=== PATIENT | male | born 2000 | race Caucasian/White ===

== ENCOUNTER 2021-02-08 20:04 | Emergency (ER) | payer OTHER, SELFPAY ==
--- NOTE | 2021-02-08 20:12 | XRR_ITS ---
PROCEDURE INFORMATION: Exam: XR Chest Exam date and time: 02/08/2021 8:12 PM Age: 20 years old Clinical indication: Shortness of breath; Additional info: SOB TECHNIQUE: Imaging protocol: XR of the chest. Views: 2 views. COMPARISON: No relevant prior studies available. FINDINGS: Lungs: Unremarkable. No consolidation. Pleural spaces: Unremarkable. No pleural effusion. No pneumothorax. Heart/Mediastinum: Unremarkable. No cardiomegaly. Bones/joints: Unremarkable. XR/XR chest 2V* [id number] IMPRESSION: No acute findings.
[2021-02-08 20:49] VITALS: BP 154/75; PULSE 83; RESP 16; TEMP 37.6; O2SAT 98
[2021-02-08] MEDS: predniSONE 20 mg Tablet PO (22:30)
--- NOTE | 2021-02-08 22:46 | ED_ITS ---
HPI - SOB/Dyspnea General: Chief Complaint: Shortness of Breath/Dyspnea Stated Complaint: sob Time Seen by Provider: 02/08/21 22:13 History of Present Illness: HPI Narrative: Patient states been exposed to more bleach here working out in felt like he possibly had an asthma attack tonight. Patient denies any fever any significant cough no loss of taste smell body aches or headache. MD elicited complaint: shortness of breath Pertinent past history: asthma Severity: mild Exacerbating factors: strong odors Relieving factors: nothing Associated symptoms: Reports no associated symptoms; Deny abdominal pain, chest pain, extremity pain, fever(s), nausea or vomiting Treatment prior to arrival: none Review of Systems Const: Denies: fever(s), chills or body aches Eyes: Denies: change in vision or blurry vision ENMT: Denies: throat pain or nasal congestion Card: Denies: chest pain or dyspnea on exertion Resp: Reports: dyspnea (Has improved over the last hour); Denies: productive cough or non-productive cough GI: Denies: abdominal pain, nausea or vomiting : Denies: difficulty urinating Musc: Denies: extremity pain Skin/Breast: Denies: rash Neuro: Denies: headache(s) Psych: Denies: anxiety or depression Bandar/Lymph: Denies: easy bruising PFSH ED PFSH: Medical History Psychiatric care Social History Smoking and tobacco status: current every day smoker (vape) Physical Exam Const: COMMON NORMALS: no acute distress, average body habitus and patient oriented x3 HENMT: COMMON NORMALS: normocephalic HEAD & SCALP: normal to inspection and normocephalic FACE & SINUS: normal facial exam Eye: COMMON NORMALS: conjunctivae normal GENERAL EYE: appearance normal, both eyes and all related structures CONJUNCTIVA: Yes conjunctivae normal Neck/C-Spine: COMMON NORMALS: no JVD Chest: COMMONS NORMALS: normal inspection of the chest Resp: COMMON NORMALS: normal respiratory effort and clear to auscultation b ilaterally AUSCULTATION: clear to auscultation bilaterally and wheezes (Very mild expiratory base) Cardio: COMMON NORMALS: no JVD, regular rate and regular rhythm RATE: regular rate RHYTHM: regular rhythm GI: COMMON NORMALS: Normal to inspection, nondistended, normoactive bowel sounds present Extremity: COMMON NORMALS: normal to inspection and full ROM Neuro: COMMON NORMALS: patient oriented x3 Course Vital Signs: Vital signs: Vital Signs Temperature 99.6 F 02/08/21 20:49 Pulse Rate 98 02/08/21 23:06 Respiratory Rate 17 02/08/21 23:06 Blood Pressure 154/75 02/08/21 20:49 Pulse Oximetry 99 02/08/21 23:06 MDM - SOB/Dyspnea MDM Narrative: Medical decision making narrative: 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 Patient has no fever headache sore throat loss of taste or smell. Has minimal shortness of breath and he can relates this to being exposed to a lot more bleachers at work. Patient has an inhaler but it appears to be out of date. Patient no acute distress not short of breath presently chest x-ray is negative. Discharge Plan Discharge Patient Disposition: Home Clinical Impression: Asthma with exacerbation Qualifiers: Asthma severity: mild Asthma persistence: intermittent Qualified Code(s): J45.21 - Mild intermittent asthma with (acute) exacerbation Condition: Stable Prescriptions: New prednisone 20 mg tablet 20 mg PO DAILY Qty: 7 RF: 0 ProAir HFA 90 mcg/actuation HFA aerosol inhaler 3 inh inhalation Q6H PRN (Reason: shortness of breath or wheezing) Qty: 8.5 RF: 0 No Action albuterol sulfate 90 mcg/actuation HFA aerosol inhaler 1 inh inhalation QID RF: 0 divalproex 500 mg tablet,delayed release (DR/EC) 500 mg PO BID RF: 0 buspirone 30 mg tablet 30 mg PO BID RF: 0 triamcinolone acetonide 0.1 % cream 1 applic topical BID 7 Days Qty: 30 RF: 0 Discharge Orders: Discharge ED (Routine); Ordered 02/08/21 Ordered By: Rosendo Lin Discharge Diet: Usual diet Discharge Activity: Resume usual activity Patient Instructions: Asthma (ED) Activity Restrictions/Additional Instructions: Follow-up with medical provider as directed. Take medications as prescribed. Return to the ER or your medical provider if condition worsens. Please read and understand discharge instructions. If any questions ask please. Discussed with your body shop supervisor if exposure to lots of bleach is causing her problems. Coding Level of Care Code ED Marine Structural Designer for Jennifer Fwd Exam Comprehensive
[2021-02-08] MEDS: albuterol 8 gm MDI 2 PUFF INHALATION (23:01)
[2021-02-08 23:06] VITALS: PULSE 98; RESP 17; O2SAT 99
== END 2021-02-08 23:07 | disposition home or self-care (01) ==
PROVIDERS: Emergency Provider Nurse Practitioner Family
DX: J45.21 Mild intermittent asthma with (acute) exacerbation (principal); F17.290 Nicotine dependence, other tobacco product, uncomplicated
CPT/HCPCS: 71046; 94640; 99283; J3535; J7512

== ENCOUNTER 2021-08-21 14:59 | Emergency (ER) | payer OTHER, SELFPAY ==
[2021-08-21 15:32] VITALS: BP 124/66; PULSE 63; RESP 15; TEMP 36.5; O2SAT 95; BMI 18.6
[2021-08-21 15:50] VITALS: BP 115/72; PULSE 81; RESP 14; TEMP 37.1; O2SAT 98; BMI 30.1
--- NOTE | 2021-08-21 16:03 | XR_ITS ---
WS: [id number] PORTABLE CHEST HISTORY: cough, congestion COMPARISON: 02/08/2021 Lungs are clear and well expanded. No pleural effusion or pneumothorax. Cardiac size: Normal. Mediastinum/Aorta: Normal mediastinum. No osseous abnormality seen. XR/XR chest 1V portable [id number] IMPRESSION: Unremarkable portable chest.
--- NOTE | 2021-08-21 16:16 | ED_ITS ---
HPI - URI/Sore Throat General: Chief Complaint: General Medical Stated Complaint: Coughing, head congestion, chest feels tight Time Seen by Provider: 08/21/21 15:40 Source: patient Mode of arrival: ambulatory Limitations: no limitations History of Present Illness: Patient is a 21-year-old male with a history of asthma here for complaints of nasal congestion, headache, body aches, cough, and sore throat over the past 3 to 4 days. Patient has not been running fevers. He has not had to use his albuterol inhaler more than normal. He states he works for the [employer] and was told to come to the ED to rule out COVID. Patient reports 2 previous COVID infections. MD elicited complaint: cough, sore throat, nasal congestion and other (headache, body aches) Onset (ago): day(s) Severity: mild Description of mucous: clear Able to tolerate fluids by mouth: Yes Associated symptoms: Reports headache(s), nasal congestion and sinus pain; Deny abdominal pain, chest pain, diarrhea, ear or mastoid pain, fever(s), nausea or vomiting Treatments prior to arrival: none Review of Systems Const: Reports: body aches; Denies: fever(s) Eyes: Denies: change in vision or blurry vision ENMT: Reports: throat pain, odynophagia, nasal congestion and sinus pain; Denies: ear or mastoid pain Card: Denies: chest pain, palpitations, edema, swelling of feet/ankles, lightheadedness, syncope or pre-syncope Resp: Reports: productive cough and chest congestion; Denies: dyspnea, wheezing or hemoptysis GI: Denies: abdominal pain, nausea, vomiting or diarrhea Musc: Denies: neck pain, back pain, extremity pain or joint pain Skin/Breast: Denies: rash Neuro: Reports: headache(s); Denies: numbness in extremities, weakness in extremities, sensory changes or dizziness [facility] ED PFSH: Medical History Psychiatric care Social History Smoking and tobacco status: current every day smoker (vape) e-cigarettes E- Cigarette Details: vaporizer device and with nicotine E-cig/vape details: Uses a stick in about 1.5 weeks. Quit status (tobacco): considering quitting Second hand smoke exposure: No Physical Exam Const: COMMON NORMALS: no acute distress, patient oriented x3, no limitations and alert GENERAL APPEARANCE: cooperative HENMT: FACE & SINUS: normal facial exam NOSE: Nasal discharge present THROAT: posterior oropharynx normal Eye: GENERAL EYE: appearance normal, both eyes and all related structures Neck/C-Spine: COMMON NORMALS: no lymphadenopathy Resp: COMMON NORMALS: normal respiratory effort and clear to auscultation bilaterally AUSCULTATION: clear to auscultation bilaterally Cardio: COMMON NORMALS: regular rate and regular rhythm RATE: regular rate RHYTHM: regular rhythm Extremity: GENERAL: Yes normal exam except as noted Neuro: ARETHA COMA SCALE: document [facility] findings [place] coma scale eye opening: Spontaneous Aretha coma scale verbal response: Orientated [place] coma scale motor response: Obey commands [place] coma scale total score: 15 COMMON NORMALS: patient oriented x3, moves all extremities, no focal motor deficits and no sensory deficits noted SENSORIUM/ORIENTATION: Yes alert Skin: COMMON NORMALS: no rashes or lesions noted GENERAL SKIN EXAM: no rashes or lesions noted Course Vital Signs: Vital signs: Vital Signs Temperature 98.8 F 08/21/21 15:50 Pulse Rate 81 08/21/21 15:50 Respiratory Rate 14 08/21/21 15:50 Blood Pressure 115/72 08/21/21 15:50 Pulse Oximetry 98 08/21/21 15:50 MDM - URI/Sore Throat Medical Decision Making Patient appears in no acute distress. His vital signs are normal. CXR is no rmal. PCR COVID obtained. Recommend quarantining until results return. Lab Data Radiology Impressions Chest X-Ray 08/21/21 16:03 IMPRESSION: Unremarkable portable chest. Laboratory Results Coronavirus 229E (PCR) Not detected (NOT DETECT) 08/21/21 16:23 Human Metapneumovir PCR Not detected (NOT DETECT) 08/21/21 18:39 Entero/Rhino (PCR) Detected (NOT DETECT) A 08/21/21 18:39 SARS-CoV-2 (PCR) Not detected (NOT DETECT) 08/21/21 16:23 Discharge Plan Discharge Patient Disposition: Home Clinical Impression: Viral upper respiratory infection Condition: Stable Prescriptions: No Action albuterol sulfate 90 mcg/actuation HFA aerosol inhaler 1 inh inhalation QID 0RF duloxetine [Cymbalta] 60 mg capsule,delayed release(DR/EC) 60 mg PO DAILY Qty: 30 2RF ProAir HFA 90 mcg/actuation HFA aerosol inhaler 3 inh inhalation Q6H PRN (Reason: shortness of breath or wheezing) Qty: 8.5 0RF Discharge Orders: Discharge ED (Routine); Ordered 08/21/21 Ordered By: Mavis Cho Activity Restrictions/Additional Instructions: Your chest x-ray was normal. As we discussed I would recommend quarantining until your COVID results return. Coding Level of Care Code ED Biological Aide for Chg Fwd Exam Comprehensive
[2021-08-21 18:39] LABS: Adenovirus Not Detected (NOT DETECT); Chlamydia Pneumoniae Not Detected (NOT DETECT); Human Metapneumovirus Not Detected (NOT DETECT); Human Rhinovirus/Enterovirus Detected (NOT DETECT); Influenza A Not Detected (NOT DETECT); Influenza A H1 Not Detected (NOT DETECT); Influenza A H1-2009 Not Detected (NOT DETECT); Influenza A H3 Not Detected (NOT DETECT); Influenza B Not Detected (NOT DETECT); Mycoplasma Pneumoniae Not Detected (NOT DETECT); Parainfluenza Virus Type 1 Not Detected (NOT DETECT); Parainfluenza Virus Type 2 Not Detected (NOT DETECT); Parainfluenza Virus Type 3 Not Detected (NOT DETECT); Parainfluenza Virus Type 4 Not Detected (NOT DETECT); Respiratory Syncytial Virus A Not Detected (NOT DETECT); Respiratory Syncytial Virus B Not Detected (NOT DETECT)
[2021-08-21 18:42] LABS: Coronavirus 229E,HKU1,NL63,OC4 Not Detected (NOT DETECT); SARS-COV-2 Not Detected (NOT DETECT)
[2021-08-21 18:47] LABS: Human Metapneumovirus Not Detected (NOT DETECT); Human Rhinovirus/Enterovirus Detected (NOT DETECT); Results from GENMARK
== END 2021-08-21 16:47 | disposition home or self-care (01) ==
PROVIDERS: Emergency Provider Physician Assistant
DX: J06.9 Acute upper respiratory infection, unspecified (principal); F17.290 Nicotine dependence, other tobacco product, uncomplicated; Z20.822 Contact with and (suspected) exposure to COVID-19
CPT/HCPCS: 71045; 87635; 87801; 99283

== ENCOUNTER 2021-09-22 21:33 | Outpatient (CLI) | payer OTHER, SELFPAY | END 2021-09-22 21:34 | disposition home or self-care (01) | LOC: LAB 21:36 | PROVIDERS: Visit Provider Nurse Practitioner Family | DX: R30.0 Dysuria (principal) | CPT/HCPCS: 87491; 87591 ==

== ENCOUNTER 2022-01-14 15:09 | Emergency (ER) | payer OTHER, SELFPAY ==
[2022-01-14 15:40] VITALS: BP 138/84; PULSE 85; RESP 16; TEMP 36.5; O2SAT 97
--- NOTE | 2022-01-14 15:53 | W.ED.GENADLT ---
HPI - General Adult General: Chief complaint: General Medical Stated complaint: rib pain Time Seen by Provider: 01/14/22 15:49 History of Present Illness: 21-year-old male comes in today with complaints of rib pain with cough and congestion for about 1 week. Patient is reported worsening symptoms over the last 2 to 3 days. 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 Patient has a history of asthma and cigarette smoking. Associated symptoms: Reports chest pain (Rib pain) Review of Systems Const: Denies: fever(s) Card: Reports: chest pain (Rib pain) Resp: Reports: non-productive cough PFSH ED PFSH: Medical History Psychiatric care Social History Smoking and tobacco status: current every day smoker (vape) e-cigarettes E-Cigarette Details: vaporizer device and with nicotine E-cig/vape details: Uses a stick in about 1.5 weeks. Quit status (tobacco): considering quitting Second hand smoke exposure: No Physical Exam Const: COMMON NORMALS: alert HENMT: COMMON NORMALS: normocephalic HEAD & SCALP: normocephalic Neck/C-Spine: COMMON NORMALS: no meningeal signs Resp: COMMON NORMALS: normal respiratory effort AUSCULTATION: diminished lung sounds Cardio: COMMON NORMALS: regular rate and regular rhythm RATE: regular rate RHYTHM: regular rhythm GI: COMMON NORMALS: Soft to palpation and non-tender PALPATION: Yes Soft to palpation Extremity: COMMON NORMALS: full ROM Neuro: SENSORIUM/ORIENTATION: Yes alert MENINGEAL SIGNS: Yes no meningeal signs Skin: COMMON NORMALS: turgor normal GENERAL SKIN EXAM: turgor normal Course Vital Signs: Vital signs: Vital Signs Temperature 97.7 F 01/14/22 15:40 Pulse Rate 76 01/14/22 16:28 Respiratory Rate 16 01/14/22 16:28 Blood Pressure 138/84 01/14/22 15:40 Pulse Oximetry 96 01/14/22 16:28 Oxygen Delivery Me thod 01/14/22 16:28 MDM - General Adult Medical Decision Making 21-year-old male comes in today for complaints of cough and rib pain for about 1 week. Patient does have a history of asthma. On exam patient has decreased breath sounds with occasional wheeze. Differential diagnosis includes pneumonia, exacerbation of asthma, upper respiratory infection. Chest x-ray was unremarkable. COVID and influenza test were negative. Believe the patient probably has had an upper respiratory infection that has aggravated patient's asthma. Patient will be treated with steroid and albuterol inhaler. Patient was recommended to use some doxycycline for the next 5 days for further treatment of bronchitis. Patient reported understanding of care plan and need for follow-up or return to the ER for worsening symptoms. Lab Data Radiology Impressions Chest X-Ray 01/14/22 15:56 IMPRESSION: No acute findings. Laboratory Results Influenza Type A Ag negative (Negative) 01/14/22 16:35 Influenza Type B Ag negative (Negative) 01/14/22 16:35 SARS-CoV-2 Ag (Rapid) negative (Negative) 01/14/22 16:18 Discharge Plan Discharge Patient Disposition: Home Clinical Impression: Asthma Qualifiers: Asthma severity: moderate Asthma persistence: persistent Asthma complication type: with acute exacerbation Qualified Code(s): J45.41 - Moderate persistent asthma with (acute) exacerbation Condition: Stable Prescriptions: New prednisone 20 mg tablet 20 mg PO DAILY 5 Days Qty: 5 0RF doxycycline monohydrate 100 mg capsule 100 mg PO BID 5 Days Qty: 10 0RF albuterol sulfate 90 mcg/actuation HFA aerosol inhaler 2 inh inhalation Q4H PRN (Reason: shortness of breath or wheezing) Qty: 8.5 0RF Rx Instructions: until breathing returns to target peak flow/parameters Discontinued albuterol sulfate 90 mcg/actuation HFA aerosol inhaler 1 inh inhalation QID albuterol sulfate [ProAir HFA] 90 mcg/actuation HFA aerosol inhaler 3 inh inhalation Q6H PRN (Reason: shortness of breath or wheezing) Qty: 8.5 0RF No Action duloxetine [Cymbalta] 60 mg capsule,delayed release(DR/EC) 60 mg PO DAILY Qty: 30 2RF Discharge Orders: Discharge ED (Routine); Ordered 01/14/22 Ordered By: Jose Younger Discharge Diet: Usual diet Discharge Activity: Increase activity as tolerated Patient Instructions: Wheezing (ED) Activity Restrictions/Additional Instructions: Take medications as directed. Drink plenty of water and fluids. Follow-up with primary care for further instruction. Return to ER for worsening symptoms such as increased shortness of breath, chest pain, inability to hold fluids down. Coding Level of Care Code ED Optometrist Assistant for Chg Fwd Exam Comprehensive
--- NOTE | 2022-01-14 15:56 | XRR_ITS ---
PROCEDURE INFORMATION: Exam: XR Chest Exam date and time: 01/14/2022 4:38 PM Age: 21 years old Clinical indication: Cough and other: Congestion; Additional info: Cough, congestion, rib pain TECHNIQUE: Imaging protocol: Radiologic exam of the chest. Views: 2 views. COMPARISON: CR XR chest 1V portable [id number] 08/21/2021 4:26 PM FINDINGS: Lungs: Unremarkable. No consolidation. Pleural spaces: Unremarkable. No pleural effusion. No pneumothorax. Heart/Mediastinum: Unremarkable. No cardiomegaly. Bones/joints: Unremarkable. XR/XR chest 2V* [id number] IMPRESSION: No acute findings.
[2022-01-14] MEDS: albuterol 8 gm MDI 2 PUFF INHALATION (16:25)
[2022-01-14 16:28] VITALS: PULSE 76; RESP 16; O2SAT 96
[2022-01-14 16:51] LABS: Influenza A by IFA negative (Negative); Influenza B by IFA negative (Negative)
[2022-01-14 16:54] LABS: SARS Covid-2 Antigen negative (Negative)
[2022-01-14] MEDS: dexamethasone 10 mg/mL INJ IM (17:11)
[2022-01-14] MEDS: doxycycline 100 mg Tablet PO (17:32)
== END 2022-01-14 17:36 | disposition home or self-care (01) ==
PROVIDERS: Emergency Provider Nurse Practitioner Family
DX: J45.41 Moderate persistent asthma with (acute) exacerbation (principal); Z20.822 Contact with and (suspected) exposure to COVID-19; F17.290 Nicotine dependence, other tobacco product, uncomplicated
CPT/HCPCS: 71046; 87426; 87804; 94640; 96372; 99284; J1100; J3535

== ENCOUNTER 2022-08-29 16:24 | Emergency (ER) | payer SELFPAY ==
[2022-08-29 16:29] VITALS: BP 119/80; PULSE 75; RESP 16; TEMP 36.9; O2SAT 98; BMI 25.1
[2022-08-29 16:47] LABS: Basophils # 0.1 10^3/uL (0.0-0.1); Basophils % 0.7 %; Eosinophils % 11.6 %; Hematocrit 45.4 % (42.0-52.0); Hemoglobin 14.9 g/dL (11.7-16.6); Lymphocytes # 2.6 10^3/uL (0.8-4.8); Mean Corpuscular HGB Conc 32.8 g/dL (30.0-36.0); Mean Corpuscular Hemoglobin 28.3 pg (28.0-34.0); Mean Corpuscular Volume 86.1 fl (80-94); Monocytes # 0.7 10^3/uL (0.2-0.9); Monocytes % 8.6 %; Neutrophils # 3.88 10^3/uL (1.8-7.7); Nucleated Red Blood Cells % 0 %; Platelet Count 288 10^3/cmm (130-400); Red Blood Count 5.27 10^6/uL (4.1-5.3); Red Cell Distribution Width 12.6 % (12.1-15.1); White Blood Count 8.3 10^3/uL (4.0-10.0)
[2022-08-29 16:58] LABS: Alanine Aminotransferase 9 U/L (0-41); Albumin Level 4.7 g/dL (3.5-5.2); Alkaline Phosphatase 38 U/L (40-130); Anion Gap 17.4 (5-19); Aspartate Amino Transferase 14 U/L (0-40); Blood Urea Nitrogen 13 mg/dL (6-20); Calcium 9.6 mg/dL (8.5-10.5); Carbon Dioxide 24 mmol/L (22-29); Chloride 103 mmol/L (98-107); Globulin 2.7 g/dL (1.3-4.6); Glomerular Filtration Rate 92.6 mL/min (90-130); Glucose 105 mg/dL (65-115); Lipase 18 U/L (13-60); Osmolality Calculated 290 mOsm/kg (285-295); Potassium 4.4 mmol/L (3.5-5.1); Sodium 140 mmol/L (136-145); Total Bilirubin 0.8 mg/dL (0.15-1.2); Total Protein 7.4 g/dL (6.6-8.7)
[2022-08-29 20:55] VITALS: BP 130/81; PULSE 70; RESP 16; TEMP 37.1; O2SAT 98
--- NOTE | 2022-08-29 20:55 | CTR_ITS ---
PROCEDURE INFORMATION: Exam: CT Abdomen And Pelvis Without Contrast Exam date and time: 08/29/2022 9:22 PM Age: 22 years old Clinical indication: Abdominal pain; Flank; Right; Additional info: Right flank pain TECHNIQUE: Imaging protocol: Computed tomography of the abdomen and pelvis without contrast. Radiation optimization: All CT scans at this facility use at least one of these dose optimization techniques: automated exposure control; mA and/or kV adjustment per patient size (includes targeted exams where dose is matched to clinical indication); or iterative reconstruction. REPORTING DATA: Count of CT and Cardiac NM exams in prior 12 months: This patient has received 0 known CTs and 0 known cardiac nuclear medicine studies in the 12 months prior to the current study. COMPARISON: CR XR chest 2V* [id number] 01/14/2022 4:38 PM RADIATION DOSE METRICS: Total DLP (mGy-cm): 389.14 FINDINGS: Lungs: The visualized lung bases are clear. Liver: Unremarkable. No discrete mass. Gallbladder and bile ducts: No calcified gallstones or biliary dilation identified. Pancreas: Unremarkable with no suspicious mass. No ductal dilation. Spleen: The spleen is not enlarged. No suspicious mass is noted. Adrenal glands: Normal. No mass. Kidneys and ureters: No solid renal mass or hydronephrosis. Stomach and bowel: No small bowel obstruction or free air. No overt mucosal thickening. Appendix: No evidence of appendicitis. Intraperitoneal space: Unremarkable. No free air. No suspicious fluid collection. Vasculature: No AAA or acute vascular lesion identified. Lymph nodes: No enlarged lymph nodes. Urinary bladder: Unremarkable as visualized. Reproductive: Unremarkable as visualized. Bones/joints: No acute fracture. Soft tissues: No acute or suspicious finding noted. Tiny fat umbilical hernia. CT/CT kidney stone [id number] IMPRESSION: No acute findings.
--- NOTE | 2022-08-29 20:55 | W.ED.ABDPA2 ---
HPI - Abdominal Pain General: Chief Complaint: Abdominal Pain Stated Complaint: right side and back pain, dizzy, n/v Time Seen by Provider: 08/29/22 20:55 History of Present Illness: 22-year-old male patient comes in today with complaints of right lower abdominal pain radiating to the back starting 2 days ago. Patient appears nontoxic. Patient reports some nausea with vomiting. Patient has very poor teeth. Patient denies any history of abdominal surgeries. Patient denies any history of renal stones. Associated Symptoms: Reports nausea and vomiting; Denies constipation, diarrhea and fever(s) Review of Systems General: Reports: 10 or more systems reviewed and unremarkable except in HPI and below Const: Denies: fever(s) Eyes: Denies: change in vision Card: Denies: chest pain Resp: Denies: dyspnea GI: Reports: abdominal pain, nausea and vomiting; Denies: diarrhea or constipation : Denies: difficulty urinating Musc: Reports: back pain Skin/Breast: Denies: rash PFSH ED PFSH: Social History Smoking and tobacco status: current every day smoker (vape) e-cigarettes E-Cigarette Details: vaporizer device and with nicotine E-cig/vape details: Uses a stick in about 1.5 weeks. Quit status (tobacco): considering quitting Second hand smoke exposure: No Physical Exam Const: COMMON NORMALS: alert HENMT: COMMON NORMALS: normocephalic HEAD & SCALP: normocephalic MOUTH: Normal oral and palatal mucosa present Neck/C-Spine: COMMON NORMALS: full ROM Resp: COMMON NORMALS: normal respiratory effort and clear to auscultation bilaterally AUSCULTATION: clear to auscultation bilaterally Cardio: COMMON NORMALS: regular rate and regular rhythm RATE: regular rate RHYTHM: regular rhythm GI: AUSCULTATION: Yes normoactive bowel sounds PALPATION: Yes Tenderness to palpation present (GI) and Yes Guarding due to palpation present (GI) : BLADDER/KIDNEY EXAM: Yes CVA tenderness on the right Back/Pelvis: GENERAL BACK: Yes CVA tenderness Extremity: COMMON NORMALS: full ROM Neuro: SENSORIUM/ORIENTATION: Yes alert Skin: COMMON NORMALS: turgor normal GENERAL SKIN EXAM: turgor normal Course Vital Signs: Vital signs: Vital Signs Temperature 98.7 F 08/29/22 20:55 Pulse Rate 70 08/29/22 20:55 Respiratory Rate 16 08/29/22 20:55 Blood Pressure 130/81 08/29/22 20:55 Pulse Oximetry 98 08/29/22 20:55 Oxygen Delivery Me thod Room Air 08/29/22 16:29 MDM - Abdominal Pain Medical Decision Making 22-year-old male patient comes in today for complaints of right side abdominal pain rating to the flank. On exam respirations are even lungs were clear to auscultation. Skin was warm and dry. Vital signs were normal. Abdomen was tender in the right lower quadrant. CVA tenderness was also noted on percussion on the right side. Differential diagnosis includes but not limited to appendicitis, gallbladder disease, renal calculi, constipation, gastroenteritis. Laboratory values were unremarkable. Urinalysis was clean. CT of the abdomen and pelvis noted no hydronephrosis or signs of renal or ureteral stone, gallbladder was unremarkable, appendix was unremarkable. Patient was treated for his pain and encouraged to eat a healthy diet with lots of fluids. Patient was recommended to follow-up with primary care for further instruction or return to ER for worsening symptoms. Patient reported understanding and agreed to plan. No sign of illness was noted at this time and patient was stable and released to home. Lab Data 08/29/22 16:33 08/29/22 16:33 Labs/Radiology: Radiology Impressions Abdomen/Pelvis CT 08/29/22 20:55 IMPRESSION: No acute findings. Laboratory Results WBC 8.3 10^3/uL (4.0-10.0) 08/29/22 16:33 RBC 5.27 10^6/uL (4.1-5.3) 08/29/22 16:33 Hgb 14.9 g/dL (11.7-16.6) 08/29/22 16:33 Hct 45.4 % (42.0-52.0) 08/29/22 16:33 MCV 86.1 fl (80-94) 08/29/22 16:33 MCH 28.3 pg (28.0-34.0) 08/29/22 16: MCHC 32.8 g/dL (30.0-36.0) 08/29/22 16:33 RDW 12.6 % (12.1-15.1) 08/29/22 16:33 Plt Count 288 10^3/cmm (130-400) 08/29/22 16:33 MPV 9.0 fL (7.4-10.4) 08/29/22 16:33 Neut % (Auto) 47.0 % 08/29/22 16:33 Lymph % (Auto) 32.0 % 08/29/22 16:33 Delta % (Auto) 8.6 % 08/29/22 16:33 Eos % (Auto) 11.6 % 08/29/22 16:33 Baso % (Auto) 0.7 % 08/29/22 16:33 Neut # (Auto) 3.88 10^3/uL (1.8-7.7) 08/29/22 16:33 Lymph # (Auto) 2.6 10^3/uL (0.8-4.8) 08/29/22 16:33 [place] # (Auto) 0.7 10^3/uL (0.2-0.9) 08/29/22 16:33 Eos # (Auto) 1.0 10^3/uL (0.0-0.8) H 08/29/22 16:33 Baso # (Auto) 0.1 10^3/uL (0.0-0.1) 08/29/22 16:33 Nucleated RBC % (auto) 0 % 08/29/22 16:33 Nucleated RBCs # 0.0 /100WBC 08/29/22 16:33 Sodium 140 mmol/L (136-145) 08/29/22 16:33 Potassium 4.4 mmol/L (3.5-5.1) 08/29/22 16:33 Chloride 103 mmol/L (98-107) 08/29/22 16:33 Carbon Dioxide 24 mmol/L (22-29) 08/29/22 16:33 Anion Gap 17.4 (5-19) 08/29/22 16:33 BUN 13 mg/dL (6-20) 08/29/22 16:33 Creatinine 1.0 mg/dL (0.7-1.2) 08/29/22 16:33 GFR Calculation 92.6 mL/min (90-130) 08/29/22 16:33 Glucose 105 mg/dL (65-115) 08/29/22 16:33 Calculated Osmolality 290 mOsm/kg (285-295) 08/29/22 16:33 Calcium 9.6 mg/dL (8.5-10.5) 08/29/22 16:33 Total Bilirubin 0.8 mg/dL (0.15-1.2) 08/29/22 16:33 AST 14 U/L (0-40) 08/29/22 16:33 ALT 9 U/L (0-41) 08/29/22 16:33 Alkaline Phosphatase 38 U/L (40-130) L 08/29/22 16:33 Total Protein 7.4 g/dL (6.6-8.7) 08/29/22 16:33 Albumin 4.7 g/dL (3.5-5.2) 08/29/22 16:33 Globulin 2.7 g/dL (1.3-4.6) 08/29/22 16:33 Lipase 18 U/L (13-60) 08/29/22 16:33 Urine Color Yellow (Yellow) 08/29/22 20:58 Urine Appearance Clear (CLEAR) 08/29/22 20:58 Urine pH 6 (5-7) 08/29/22 20:58 Ur Specific [place] 1.020 (1.005-1.030) 08/29/22 20:58 Urine Protein Neg (Negative) 08/29/22 20:58 Urine Glucose (UA) Norm (Normal) 08/29/22 20:58 Urine Ketones 1+ (Negative) H 08/29/22 20:58 Urine Blood Neg (Negative) 08/29/22 20:58 Urine Nitrate Negative (Negative) 08/29/22 20:58 Urine Bilirubin Neg (Negative) 08/29/22 20:58 Urine Urobilinogen Norm mg/dL (Negative) 08/29/22 20:58 Ur Leukocyte Esterase Negative (Negative) 08/29/22 20:58 Discharge Plan Discharge Patient Disposition: Home Clinical Impression: Abdominal pain Qualifiers: Abdominal location: right lower quadrant Qualified Code(s): R10.31 - Right lower quadrant pain Condition: Stable Prescriptions: New ondansetron 4 mg tablet,disintegrating 4 mg PO Q8H PRN (Reason: nausea and vomiting) Qty: 7 0RF hydrocodone-acetaminophen 5-325 mg tablet 1 tab PO Q8H PRN (Reason: pain (scale score 7-10)) Qty: 7 0RF No Action duloxetine [Cymbalta] 60 mg capsule,delayed release(DR/EC) 60 mg PO DAILY Qty: 30 2RF albuterol sulfate 90 mcg/actuation HFA aerosol inhaler 2 inh inhalation Q4H PRN (Reason: shortness of breath or wheezing) Qty: 8.5 0RF Rx Instructions: until breathing returns to target peak flow/parameters Discharge Orders: Discharge ED (Routine); Ordered 08/29/22 Ordered By: Jose Younger Discharge Diet: Usual diet Discharge Activity: Increase activity as tolerated Patient Instructions: Abdominal Pain (ED) Activity Restrictions/Additional Instructions: Drink plenty of water and fluids. Healthy diet and activity. Use acetaminophen and/or ibuprofen as needed to control pain. Use hydrocodone for severe pain. Use ondansetron for nausea and vomiting as needed. Follow-up with primary care for further instructions. Return to emergency department for worsening symptoms such as blood in vomit or stool, fever greater than 100.4, uncontrolled pain. Coding Level of Care Code ED Industrial Chemistry Teacher for Jennifer Cantu
[2022-08-29 21:01] LABS: Add Urine Microscopic? NO; Charge for UA Resulting for Rev
[2022-08-29 21:08] LABS: Bilirubin Urine Neg (Negative); Blood Urine Neg (Negative); Glucose Urine UA Norm (Normal); Ketones Urine 1+ (Negative); Leukocyte Esterase Urine Negative (Negative); Nitrate Urine Negative (Negative); Protein Urine Neg (Negative); Urine Appearance Clear (CLEAR); Urine Color Yellow (Yellow); Urobilinogen Urine Norm (Negative); pH Urine 6 (5-7)
[2022-08-29] MEDS: ketorolac 30 mg/mL INJ IM (21:10)
[2022-08-29] MEDS: ondansetron 2 mg/ML SDV 2 mL 4 MG IM (21:10)
[2022-08-29] MEDS: HYDROcodone-acetaminophen 5-325 mg Tablet 1 TAB PO (22:32)
[2022-08-29 22:34] VITALS: BP 130/81; PULSE 70; RESP 16; TEMP 37.1; O2SAT 98
== END 2022-08-29 22:35 | disposition home or self-care (01) ==
PROVIDERS: Emergency Medicine; Emergency Provider Nurse Practitioner Family
DX: R10.31 Right lower quadrant pain (principal); F17.290 Nicotine dependence, other tobacco product, uncomplicated
CPT/HCPCS: 36415; 74176; 80053; 81003; 83690; 85025; 96372; 99284; J1885; J2405

== ENCOUNTER 2023-05-31 12:30 | Inpatient (IN) | payer OTHER, SELFPAY ==
[2023-05-31] VITALS (10 sets, daily range): BP systolic 106–125; BP diastolic 56–84; PULSE 16–90; RESP 16–18; TEMP 36.5–36.8; O2SAT 18–99; BMI 26.6
--- NOTE | 2023-05-31 13:19 | W.ED.ABDPA2 ---
HPI - Abdominal Pain General: Chief Complaint: Abdominal Pain Stated Complaint: vomiting blood Time Seen by Provider: 05/31/23 13:19 History of Present Illness: 23-year-old male presents emergency department with complaints of abdominal pain. He states he has had nausea and vomiting greater than 12 episodes for the previous 1 day. He states he is also started having some intermittent blood in his emesis. 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 He states he has had increased fatigue and malaise and is unable to keep any type of fluids or food down. He states his abdominal pain is a intermittent cramping type pain that is a 5 out of 10. He denies diarrhea or loose stools. Associated Symptoms: Reports hematemesis, nausea and vomiting Review of Systems General: Reports: 10 or more systems reviewed and unremarkable except in HPI and below Const: Reports: fatigue and malaise GI: Reports: abdominal pain, nausea, vomiting and hematemesis [facility] ED PFSH: Surgical History (Updated 05/31/23 @ 17:35 by Deo Meyers MD) History of colostomy reversal Social History Smoking and tobacco/nicotine status: current every day tobacco/nicotine user (vape) e-cigarettes E-Cigarette Details: vaporizer device and with nicotine E-cig/vape details: Uses a stick in about 1.5 weeks. Quit status (tobacco/nicotine): considering quitting Second hand smoke exposure: No Physical Exam Narrative: EXAM NARRATIVE: Constitutional: the patient appears well nourished and of normal development. Vital signs as documented. No acute distress at present. Alert and oriented-to person, place, time and situation. Ill-appearing. Head, eyes, ears, nose, mouth, throat: Normocephalic, atraumatic. Pupils-equal, round, reactive to light. No scleral icterus. Normal-appearing external ears. Normal appearing nasal turbinates, no drainage. No obvious oral lesions, posterior oropharynx without erythema or exudates. Neck: Supple, trachea is midline, no lymphadenopathy, no jugular venous distension, thyromegaly, or carotid bruits. Carotid upstrokes are brisk bilaterally. Lungs: clear to auscultation to all lung baum. Symmetrical rise and fall of chest, no obvious signs of increased work of breathing at present. Cardiac: Regular rate and rhythm, positive S1, S2. No murmurs, rubs or gallops that I can appreciate Abdomen: Soft, generalized tender to palpation, right lower quadrant of the abdomen does have a well healed surgical scar noted. Hypoactive bowel sounds active bowel sounds to all quadrants. No palpable masses, no organomegaly and abdominal bruits. Extremities: 2+ pulses in the upper extremities that are equal bilaterally, 2+ pulses in the lower extremities that are equal bilaterally. Non-edematous. Moves all extremities well, sensation to all extremities are noted. Skin: Warm, dry, intact. Course Vital Signs: Vital signs: Vital Signs Temperature 98.2 F 05/31/23 12:37 Pulse Rate 90 05/31/23 16:00 Respiratory Rate 18 05/31/23 16:00 Blood Pressure 117/84 05/31/23 16:00 Pulse Oximetry 98 05/31/23 16:00 Oxygen Delivery Me thod Room Air 05/31/23 16:00 MDM - Abdominal Pain Medical Decision Making Physical exam completed and documented CBC did demonstrate elevated white blood cells at 17.1 patient's lactic acid was also elevated at 2.9 CT scan of the abdomen pelvis was concerning for small bowel obstruction as there does appear to be significant postsurgical scarring to the abdominal region. Patient does have a mildly elevated anion gap of 23.1 as well as a elevated total bilirubin which I suspect is most likely secondary to his recurrent nausea and vomiting and small bowel obstruction. I did review the CT scan which was also concerning for thickened gallbladder and I have ordered an ultrasound and contacted the general surgeon for consultation and also contact the hospitalist and requested admission for the patient. I did provide IV antibiotics as well as an NG tube and will keep the patient n.p.o. and admit to the [facility] floor for additional evaluation treatment and care. Lab Data I reviewed the patient's lab results. 05/31/23 13:17 05/31/23 13:17 Labs/Radiology: Radiology Impressions Abdomen/Pelvis CT 05/31/23 13:55 IMPRESSION: No acute findings. Gallbladder Ultrasound 05/31/23 15:16 IMPRESSION: No acute findings. Abdomen X-Ray 05/31/23 15:21 IMPRESSION: NG tube tip proximal stomach. Please note, only upper abdomen is imaged. Laboratory Results WBC 17.11 10^3/uL (3.29-11.43) H 05/31/23 13:17 RBC 5.52 10^6/uL (3.85-5.65) 05/31/23 13:17 Hgb 16.10 g/dL (11.27-16.99) 05/31/23 13:17 Hct 46.9 % (37-53) 05/31/23 13:17 MCV 85.0 fl (82-101) 05/31/23 13:17 MCH 29.2 pg (27-33) 05/31/23 13:17 MCHC 34.3 g/dL (30-55) 05/31/23 13:17 RDW 12.8 % (12.1-15.1) 05/31/23 13:17 Plt Count 322 10^3/cmm (157-399) 05/31/23 13:17 MPV 9.3 fL (7.4-10.4) 05/31/23 13:17 Neut % (Auto) 93.5 % 05/31/23 13:17 Lymph % (Auto) 2.9 % 05/31/23 13:17 [place] % (Auto) 3.1 % 05/31/23 13:17 Eos % (Auto) 0.0 % 05/31/23 13:17 Baso % (Auto) 0.1 % 05/31/23 13:17 Neut # (Auto) 15.99 10^3/uL (1.8-7.7) H 05/31/23 13:17 Lymph # (Auto) 0.5 10^3/uL (0.8-4.8) L 05/31/23 13:17 [place] # (Auto) 0.5 10^3/uL (0.2-0.9) 05/31/23 13:17 Eos # (Auto) 0.0 10^3/uL (0.0-0.8) 05/31/23 13:17 Baso # (Auto) 0.0 10^3/uL (0.0-0.1) 05/31/23 13:17 Nucleated RBC % (auto) 0 % 05/31/23 13:17 Nucleated RBCs # 0.0 /100WBC 05/31/23 13:17 Sodium 142 mmol/L (136-145) 05/31/23 13:17 Potassium 4.1 mmol/L (3.5-5.1) 05/31/23 13:17 Chloride 98 mmol/L (98-107) 05/31/23 13:17 Carbon Dioxide 25 mmol/L (22-29) 05/31/23 13:17 Anion Gap 23.1 (5-19) H 05/31/23 13:17 BUN 11 mg/dL (6-20) 05/31/23 13:17 Creatinine 1.0 mg/dL (0.7-1.2) 05/31/23 13:17 GFR Calculation 91.8 mL/min (90-130) 05/31/23 13:17 Glucose 170 mg/dL (65-115) H 05/31/23 13:17 Calculated Osmolality 297 mOsm/kg (285-295) H 05/31/23 13:17 Lactic Acid 2.9 mmol/L (0.5-2.2) H 05/31/23 13:17 Lactic Acid (Sepsis) 1.2 mmol/L (0.5-2.2) 05/31/23 17:02 Calcium 10.6 mg/dL (8.5-10.5) H 05/31/23 13:17 Total Bilirubin 1.5 mg/dL (0.15-1.2) H 05/31/23 13:17 AST 17 U/L (0-40) 05/31/23 13:17 ALT 11 U/L (0-41) 05/31/23 13:17 Alkaline Phosphatase 36 U/L (40-130) L 05/31/23 13:17 Total Protein 8.5 g/dL (6.6-8.7) 05/31/23 13:17 Albumin 5.5 g/dL (3.5-5.2) H 05/31/23 13:17 Globulin 3.0 g/dL (1.3-4.6) 05/31/23 13:17 Lipase 13 U/L (13-60) 05/31/23 13:17 Procalcitonin 0.04 ng/mL (0-0.5) 05/31/23 13:17 TSH 1.25 uIU/mL (0.27-4.20) 05/31/23 15:51 Urine Color Yellow (Yellow) 05/31/23 16:46 Urine Appearance Clear (CLEAR) 05/31/23 16:46 Urine pH 6.5 (5-7) 05/31/23 16:46 Ur Specific [place] 1.010 (1.005-1.030) 05/31/23 16:46 Urine Protein 1+ (Negative) H 05/31/23 16:46 Urine Glucose (UA) Norm (Normal) 05/31/23 16:46 Urine Ketones 3+ (Negative) H 05/31/23 16:46 Urine Blood Neg (Negative) 05/31/23 16:46 Urine Nitrate Negative (Negative) 05/31/23 16:46 Urine Bilirubin 1+ (Negative) H 05/31/23 16:46 Urine Urobilinogen 1 mg/dL (Negative) H 05/31/23 16:46 Ur Leukocyte Esterase Negative (Negative) 05/31/23 16:46 Urine RBC None /hpf (0-2) 05/31/23 16:46 Urine WBC Rare /hpf (0-5) 05/31/23 16:46 Ur Squamous Epith Cells None /hpf (0-5) 05/31/23 16:46 Amorphous Sediment Not Reportable 05/31/23 16:46 Urine Bacteria Trace /hpf (NONE) 05/31/23 16:46 Urine Mucus 2+ /hpf 05/31/23 16:46 XR interpretation done by ED provider, pending radiology final review ED provider radiology interpretation(s): CT scan of the abdomen pelvis is concerning for small bowel obstruction I did obtain an ultrasound that showed gallbladder wall with mild thickening. Discharge Plan Discharge Admit Provider: Brittaney Tsai Condition: Stable Prescriptions: No Action No Known Home Medications Coding Level of Care Code ED Multimedia Engineer for Keeg Fwrolf
[2023-05-31 13:24] LABS: Basophils % 0.1 %; Hematocrit 46.9 % (37-53); Lymphocytes # 0.5 10^3/uL (0.8-4.8); Lymphocytes % 2.9 %; Mean Corpuscular HGB Conc 34.3 g/dL (30-55); Mean Corpuscular Hemoglobin 29.2 pg (27-33); Mean Platelet Volume 9.3 fL (7.4-10.4); Monocytes # 0.5 10^3/uL (0.2-0.9); Monocytes % 3.1 %; Neutrophils # 15.99 10^3/uL (1.8-7.7); Neutrophils % 93.5 %; Nucleated Red Blood Cells % 0 %; Platelet Count 322 10^3/cmm (157-399); Red Blood Count 5.52 10^6/uL (3.85-5.65); Red Cell Distribution Width 12.8 % (12.1-15.1); White Blood Count 17.11 10^3/uL (3.29-11.43)
[2023-05-31 13:45] LABS: Alanine Aminotransferase 11 U/L (0-41); Albumin Level 5.5 g/dL (3.5-5.2); Alkaline Phosphatase 36 U/L (40-130); Anion Gap 23.1 (5-19); Aspartate Amino Transferase 17 U/L (0-40); Blood Urea Nitrogen 11 mg/dL (6-20); Calcium 10.6 mg/dL (8.5-10.5); Carbon Dioxide 25 mmol/L (22-29); Chloride 98 mmol/L (98-107); Creatinine Clr Calc Pharmacy 120.9603; Glomerular Filtration Rate 91.8 mL/min (90-130); Glucose 170 mg/dL (65-115); Lipase 13 U/L (13-60); Osmolality Calculated 297 mOsm/kg (285-295); Potassium 4.1 mmol/L (3.5-5.1); Sodium 142 mmol/L (136-145); Total Bilirubin 1.5 mg/dL (0.15-1.2); Total Protein 8.5 g/dL (6.6-8.7)
--- NOTE | 2023-05-31 13:55 | CTR_ITS ---
PROCEDURE INFORMATION: Exam: CT Abdomen And Pelvis With Contrast Exam date and time: 05/31/2023 2:12 PM Age: 23 years old Clinical indication: Abdominal pain; Generalized; Prior surgery; Surgery date: 6+ months; Surgery type: History of colostomy; Additional info: Abd pain/vomiting blood, history of colostomy TECHNIQUE: Imaging protocol: Computed tomography of the abdomen and pelvis with contrast. Radiation optimization: All CT scans at this facility use at least one of these dose optimization techniques: automated exposure control; mA and/or kV adjustment per patient size (includes targeted exams where dose is matched to clinical indication); or iterative reconstruction. Contrast material: OMNI 350; Contrast volume: 100 ml; Contrast route: INTRAVENOUS (IV); COMPARISON: CT kidney stone [id number] 08/29/2022 9:22 PM RADIATION DOSE METRICS: Total DLP (mGy-cm): 451.24 FINDINGS: Liver: Normal. No mass. Gallbladder and bile ducts: Normal. No calcified stones. No ductal dilation. Pancreas: Normal. No ductal dilation. Spleen: Normal. No splenomegaly. Adrenal glands: Normal. No mass. Kidneys and ureters: Normal. No hydronephrosis. Stomach and bowel: Suture line right colon. Appendix: No evidence of appendicitis. Intraperitoneal space: Unremarkable. No free air. No significant fluid collection. Vasculature: Unremarkable. No abdominal aortic aneurysm. Lymph nodes: Unremarkable. No enlarged lymph nodes. Urinary bladder: No focal wall thickening of the urinary bladder. 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 Reproductive: Unremarkable as visualized. Bones/joints: Unremarkable. No acute fracture. Soft tissues: Unremarkable. CT/CT abdomen pelvis w con* [id number] IMPRESSION: No acute findings.
[2023-05-31] MEDS: sodium chloride 0.9% 1,000 ML 999 ML IV (14:05)
[2023-05-31] MEDS: ondansetron 2 mg/ML SDV 2 mL 4 MG IVP ×2 (14:05→19:31)
[2023-05-31] MEDS: iohexol 350 mg/mL 500 mL Btl (per mL) IV (14:11)
[2023-05-31 14:47] LABS: Lactic Sepsis W/Reflex 2.9 mmol/L (0.5-2.2)
[2023-05-31 14:54] LABS: Procalcitonin 0.04 ng/mL (0-0.5)
--- NOTE | 2023-05-31 15:16 | USR_ITS ---
PROCEDURE INFORMATION: Exam: US Abdomen, Limited; Right Upper Quadrant Exam date and time: 05/31/2023 4:14 PM Age: 23 years old Clinical indication: Abdominal pain; Localized; Right upper quadrant (ruq); Additional info: Abd pain TECHNIQUE: Imaging protocol: Real time ultrasound of the abdomen with image documentation. Limited exam focused on the right upper quadrant. COMPARISON: CT abdomen pelvis w con* [id number] 05/31/2023 2:12 PM FINDINGS: Liver: Normal. No masses. Focal echogenic region in the liver adjacent to the falciform ligament is likely a benign perfusional variant. Gallbladder: Normal. No gallstones. Gallbladder wall is mildly thickened at 6 mm. Biliary ducts: Normal. No stones. No dilation. Pancreas: Visualized pancreas is unremarkable. Right kidney: Normal. No mass. No hydronephrosis. Measures 9.6 cm. US/US gall bladder [id number] IMPRESSION: No acute findings.
--- NOTE | 2023-05-31 15:21 | XRR_ITS ---
PROCEDURE INFORMATION: Exam: XR Abdomen Exam date and time: 05/31/2023 4:04 PM Age: 23 years old Clinical indication: Device placement; Gi device; Nasogastric tube; Additional info: Psot-ng tube placement TECHNIQUE: Imaging protocol: Radiologic exam of the abdomen. Views: Frontal supine view of the abdomen. 1 View. COMPARISON: CT abdomen pelvis w con* [id number] 05/31/2023 2:12 PM FINDINGS: Tubes, catheters and devices: NG tube tip proximal stomach. Gastrointestinal tract: Normal. No bowel dilation. Bones/joints: Unremarkable. XR/XR abdomen 1V* [id number] IMPRESSION: NG tube tip proximal stomach. Please note, only upper abdomen is imaged.
[2023-05-31] MEDS: sodium chloride 0.9% 2,449.41 ML 2449.40999999999985 ML IV (15:42)
[2023-05-31] MEDS: cefTRIAXone 1,000 MG in sodium chloride 0.9% (plus) 50 ML 100 MG IV (15:43)
[2023-05-31 16:19] LABS: Reflex Lactate Order REFLEX LACTIC ORDERD
--- NOTE | 2023-05-31 16:29 | P.HP_ITS ---
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 intake, food intolerance. Multiple episodes of nausea and vomiting. He thinks he may have had hematemesis therefore presented to the emergency room. Hemoglobin was at 12. No melena. CT of the abdomen and pelvis grossly normal, however clinical suspicion for possible SBO . Other history notable for marijuana abuse, states that he smokes marijuana multiple times a day to deal with his anxiety. Not willing to quantify. He is hard to redirect. At times he states he takes marijuana for anxiety and at other times states he really does not have any issues with anxiety. Drinks socially. States his last drink was several days ago. Denies any fever or chills. Review of Systems 2 General: Reports: 10 or more systems reviewed and unremarkable except in HPI and below Const: Denies: fever(s), chills or body aches Eyes: Denies: change in vision, blurry vision or photophobia ENMT: Reports: hoarseness; Denies: throat pain, enlarged tonsils, odynophagia or nasal congestion Card: Denies: chest pain, palpitations, irregular heart rhythm, edema, swelling of feet/ankles, lightheadedness, pre-syncope, dyspnea on exertion or orthopnea Resp: Denies: dyspnea, productive cough, non-productive cough, wheezing, stridor, pain on inspiration, change in phlegm color, hemoptysis or chest congestion GI: Denies: abdominal pain, nausea, vomiting, hematemesis, coffee ground emesis, dysphagia, heartburn, diarrhea, constipation, GI cramping, change in stool character, hematochezia or melena : Denies: flank pain, dysuria, urinary frequency, urinary urgency, urinary hesitancy or hematuria Musc: Denies: neck pain, back pain, extremity pain, joint swelling, joint warmth or deformity Neuro: Denies: headache(s), numbness in extremities, weakness in extremities, sensory changes, difficulty walking, frequent falls, dizziness, vertigo, behavioral changes, Slurred speech present or seizure-like activity Psych: Denies: anxiety, depression, suicidal ideation or homicidal ideation Endo: Denies: polyuria, polydipsia, tired all the time, cold intolerance or hot flashes Bandar/Lymph: Denies: easy bruising or easy bleeding Medications/Allergies Home Medications Medication Instructions Recorded Confirmed Last Taken Type No Known Home Medications 05/31/23 05/31/23 Unknown History Allergies Allergy/AdvReac Type Severity Reaction Status Date / Time egg Allergy Severe ALGY-Anaphy Verified 05/31/23 14:27 laxis magnesium sulfate Allergy Severe hives, Verified 05/31/23 14:27 tongue swelling milk Allergy Severe ALGY-Difficulty Verified 05/31/23 14:27 Swallowing amoxicillin Allergy Intermediate hives Verified 05/31/23 14:27 cephalexin [From Keflex] Allergy Intermediate hives Verified 05/31/23 14:27 clavulanic acid Allergy Intermediate hives Verified 05/31/23 14:27 [From Augmentin] Penicillins Allergy Intermediate hives Verified 05/31/23 14:27 PFSH Acute 2 PFSH: Surgical History (Updated 05/31/23 @ 17:35 by Deo Meyers MD) History of colostomy reversal Social History Smoking and tobacco/nicotine status: current every day tobacco/nicotine user (vape) e-cigarettes E-Cigarette Details: vaporizer device and with nicotine E- cig/vape details: Uses a stick in about 1.5 weeks. Quit status (tobacco/nicotine): considering quitting Second hand smoke exposure: No Vitals/I&O/Wt Last Vital Signs Temp 98.2 F 05/31/23 12:37 Pulse 90 05/31/23 16:00 Resp 18 05/31/23 16:00 BP 117/84 05/31/23 16:00 Pulse Ox 98 05/31/23 16:00 O2 Del Method Room Air 05/31/23 16:00 05/31/23 05/31/23 05/31/23 06:59 14:59 22:59 Intake Total 1000 / 1000 Balance 1000 / 1000 Weight last 48 hrs Weight 81.647 kg Physical Exam 2 Narrative: General: Restless, fidgeting in bed HEENT: PERRLA, pupils bilaterally equal and reactive, pallors not present Chest: Normal vesicular breath sounds, no added sounds, equal good air entry bilaterally CVS: S1-S2 regular, no murmurs, no tachycardia, no gallops, no rubs Abdomen: Soft, nontender, no organomegaly, bowel sounds present Neuro: No focal deficits, no facial deformity, AO x3, power 5/5 in all limbs Data 06/01/23 02:25 06/01/23 02:25 Micro: Microbiology 05/31/23 15:30 Blood Culture - Preliminary Blood SPECIMEN COLLECTED A&P Assessment and plan (1) Cannabis use disorder, mild, abuse: (2) Intermittent small bowel obstruction due to adhesions: (3) Dehydration: Plan 23-year-old male presenting with several days of poor p.o. intake, nausea vomiting. Per discussion with ER physician, case was discussed with general surgery on- call, per review of images, it appears there may be a functional small bowel obstruction. Question also raised for possible cholecystitis, ultrasound of the gallbladder is pending. Patient has leukocytosis of 17,000, may be related to dehydration from poor p.o. intake and constant vomiting versus cholecystitis. Start empiric ciprofloxacin and metronidazole while awaiting ultrasound of the gallbladder. NGT is being placed in the emergency room at this time. Will be connected to low intermittent suction. Patient will be NPO. No current hematemesis. Protonix 40 mg IV every 24 hours. IV fluids normal saline at 75 cc an hour As needed Zofran for pain management Check urine drug screen, check alcohol level. DVT prophylaxis: SCDs only, overall low risk For VTE Attestations 2 Medical Necessity Statement*: Anticipate greater than 2 midnight admission for SBO, need for NGT, IV fluids, evaluation for possible cholecystitis. Coding Level of Care Code Acute Code for Chg Fwd Moderate MDM includes number and complexity of problems actively addressed during encounter, amount and/or complexity of data reviewed/ordered and described risk of complication, morbidity or mortality of management as documented Diagnoses Cannabis use disorder, mild, abuse F12.10 Intermittent small bowel obstruction due to adhesions K56.50 Dehydration E86.0
[2023-05-31] MEDS: metroNIDAZOLE IV 500 MG/100 ML PREMIX 100 MG IV (16:49)
[2023-05-31 17:11] LABS: Thyroid Stimulating Hormone 1.25 uIU/mL (0.27-4.20)
[2023-05-31 17:16] LABS: Add Urine Microscopic? YES; Bacteria Urine TRACE /hpf; Bilirubin Urine 1+ (Negative); Blood Urine Neg (Negative); Glucose Urine UA Norm (Normal); Ketones Urine 3+ (Negative); Leukocyte Esterase Urine Negative (Negative); Mucus Urine 2+ /hpf; Nitrate Urine Negative (Negative); Protein Urine 1+ (Negative); Urine Appearance Clear (CLEAR); Urine Color Yellow (Yellow); Urobilinogen Urine 1 mg/dL (Negative); WBC Urine RARE /hpf (0-5); pH Urine 6.5 (5-7)
[2023-05-31 17:17] LABS: Add Urine Culture? No
--- NOTE | 2023-05-31 17:26 | P.CONIM_ITS ---
Providers/Reason For Consult 2 Consulting Physician/Specialty*: Emergency Medicine Reason for Consult*: Abd pain, SBO Requesting Physician: Delano Rogel Attending Physician: Brittaney Tsai History of Present Illness History of Present Illness Abdullahi Perdomo is a 23 year old male who presents to ED with complete PO intolerance and abdominal pain since this morning after several days of progressive PO intolerance, nausea, and vomiting. He presented to ED after emesis contained trace blood and he noticed a nosebleed. He reports multiple prior similar episodes of reduced PO tolerance which improved following diet reduction and Zofran. His history is notable for colostomy at age 6 and reversal at age 17, presumably for partial aganglionic distal colon. He reports resolution of abdominal pain and nausea following Zofran administration and NGT decompression. Review of Systems 2 Const: Denies: fever(s), chills, change in appetite, fatigue or malaise Eyes: Denies: change in vision ENMT: Reports: epistaxis; Denies: throat pain or bleeding gums Card: Denies: chest pain or lightheadedness Resp: Denies: dyspnea or hemoptysis GI: Reports: abdominal pain, nausea and vomiting; Denies: coffee ground emesis, dysphagia or hematochezia Skin/Breast: Denies: rash, pruritus, skin pain or skin tenderness Neuro: Denies: headache(s), numbness in extremities, weakness in extremities or sensory changes Psych: Reports: anxiety and depression Bandar/Lymph: Denies: easy bruising or easy bleeding Medications/Allergies Home Medications Medication Instructions Recorded Confirmed Last Taken Type No Known Home Medications 05/31/23 05/31/23 Unknown History Allergies Allergy/AdvReac Type Severity Reaction Status Date / Time egg Allergy Severe ALGY-Anaphy Verified 05/31/23 14:27 laxis magnesium sulfate Allergy Severe hives, Verified 05/31/23 14:27 tongue swelling milk Allergy Severe ALGY-Difficulty Verified 05/31/23 14:27 Swallowing amoxicillin Allergy Intermediate hives Verified 05/31/23 14:27 cephalexin [From Keflex] Allergy Intermediate hives Verified 05/31/23 14:27 clavulanic acid Allergy Intermediate hives Verified 05/31/23 14:27 [From Augmentin] Penicillins Allergy Intermediate hives Verified 05/31/23 14:27 PFSH Acute 2 PFSH: Surgical History (Updated 05/31/23 @ 17:35 by Deo Meyers MD) History of colostomy reversal Social History Smoking and tobacco/nicotine status: current every day tobacco/nicotine user (vape) e-cigarettes E-Cigarette Details: vaporizer device and with nicotine E- cig/vape details: Uses a stick in about 1.5 weeks. Quit status (tobacco/nicotine): considering quitting Second hand smoke exposure: No Vitals/I&O/Wt Last Vital Signs Temp 98.2 F 05/31/23 12:37 Pulse 90 05/31/23 16:00 Resp 18 05/31/23 16:00 BP 117/84 05/31/23 16:00 Pulse Ox 98 05/31/23 16:00 O2 Del Method Room Air 05/31/23 16:00 05/31/23 05/31/23 05/31/23 06:59 14:59 22:59 Intake Total 1050 / 1050 Balance 1050 / 1050 Weight last 48 hrs Weight 180 lb Physical Exam 2 Const: COMMON NORMALS: no acute distress, average body habitus, patient oriented x3 and alert GENERAL APPEARANCE: cooperative, comfortable and anxious HENMT: COMMON NORMALS: normocephalic, atraumatic, external ears normal and Normal external nose present (NGT present) HEAD & SCALP: normocephalic and atraumatic FACE & SINUS: normal facial exam NOSE: Normal external nose present (NGT present) EXTERNAL EAR: Yes external ears normal Eye: COMMON NORMALS: EOMs intact bilaterally and no scleral icterus GENERAL EYE: appearance normal, both eyes and all related structures ALIGNMENT: Yes alignment normal Neck/C-Spine: COMMON NORMALS: full ROM, supple and no JVD GENERAL: Yes normal visual inspection and Yes trachea midline Resp: COMMON NORMALS: normal respiratory effort, No retractions and No use of accessory muscles EFFORT & INSPECTION: Yes able to speak in complete sentences and Yes symmetric chest movement Cardio: COMMON NORMALS: no JVD, regular rate and regular rhythm RATE: r egular rate RHYTHM: regular rhythm PERIPHERAL PULSES: radial pulses present GI: COMMON NORMALS: Soft to palpation and non-tender INSPECTION: Yes scar (prior colostomy site) PALPATION: Yes Soft to palpation, No Tenderness to palpation present (GI), No Guarding due to palpation present (GI) and No Rigid due to palpation RECTAL EXAM: Yes deferred Extremity: COMMON NORMALS: normal to inspection Neuro: COMMON NORMALS: patient oriented x3 SENSORIUM/ORIENTATION: Yes alert Psych: COMMON NORMALS: mental status grossly normal, Normal thought process present, cooperative, normal affect, speech normal and activity/motor behavior normal APPEARANCE: Yes grossly normal ATTITUDE: Yes calm and Yes engaged ACTIVITY/MOTOR BEHAVIOR: Yes appropriate eye contact SPEECH: Yes normal speech MOOD & AFFECT: Yes euthymic mood THOUGHT PROCESS: Normal thought process present THOUGHT CONTENT: Yes Normal thought content present A TTENTION/CONCENTRATION: Yes attention grossly intact and Yes concentration grossly intact MEMORY/COGNITION: Yes memory grossly intact and Yes cognition grossly intact INSIGHT: Good insight present (Psych) JUDGEMENT: Good judgement present (Psych) Skin: COMMON NORMALS: no rashes or lesions noted GENERAL SKIN EXAM: no rashes or lesions noted Data 05/31/23 13:17 05/31/23 13:17 Micro: Microbiology 05/31/23 15:30 Blood Culture - Preliminary Blood SPECIMEN COLLECTED CT Abd/Pel: I personally reviewed and interpreted this imaging study as follows: My impression: Distended stomach and decompressed colon, no clear transition point identified within matted small bowel but concerning for possible SBO. Normal appearance of gallbladder. Radiologist's impression: No acute findings. US: I personally reviewed and interpreted this imaging study as follows: My impression: Slight thickening of gallbladder wall without pericholecystic inflammatory fluid. Radiologist's impression: No acute findings. A&P Assessment and plan (1) Intermittent small bowel obstruction due to adhesions: Currently with obstructive symptoms. Plan for bowel rest. Patient strongly motivated to avoid surgery if possible. -NGT to LIWS -NPO -Plan for water soluble contrast challenge tomorrow (2) Dehydration: Dehydration due to PO intolerance due to above -IVF Resuscitation per primary medical service Coding Level of Care Code Acute Code for Chg Fwd Diagnoses Intermittent small bowel obstruction due to adhesions K56.50 Dehydration E86.0
[2023-05-31 17:27] LABS: Lactic Acid level (Lactate) 1.2 mmol/L (0.5-2.2)
[2023-05-31] MEDS: pantoprazole 40 mg SDV IVP (17:59)
[2023-05-31] MEDS: morphine 4 mg/mL SDV 1 mL 2 MG IVP (20:19)
[2023-05-31] MEDS: sodium chloride 0.9% 1,000 ML 75 ML IV (21:28)
[2023-06-01] VITALS (9 sets, daily range): BP systolic 94–120; BP diastolic 52–75; PULSE 58–90; RESP 16–20; TEMP 36.3–36.8; O2SAT 95–98; BMI 25.8
[2023-06-01] MEDS: metroNIDAZOLE IV 500 MG/100 ML PREMIX 100 MG IV ×2 (00:53→08:20)
[2023-06-01] MEDS: morphine 4 mg/mL SDV 1 mL 2 MG IVP ×2 (01:21→08:32)
[2023-06-01 02:56] LABS: Basophils % 0.1 %; Hematocrit 36.3 % (37-53); Lymphocytes # 2.2 10^3/uL (0.8-4.8); Lymphocytes % 21.7 %; Mean Corpuscular HGB Conc 34.2 g/dL (30-55); Mean Corpuscular Hemoglobin 29.1 pg (27-33); Mean Corpuscular Volume 85.2 fl (82-101); Mean Platelet Volume 9.5 fL (7.4-10.4); Monocytes # 1.1 10^3/uL (0.2-0.9); Monocytes % 11.5 %; Neutrophils # 6.62 10^3/uL (1.8-7.7); Neutrophils % 66.5 %; Nucleated Red Blood Cells % 0 %; Platelet Count 221 10^3/cmm (157-399); Red Blood Count 4.26 10^6/uL (3.85-5.65); Red Cell Distribution Width 13.1 % (12.1-15.1); White Blood Count 9.95 10^3/uL (3.29-11.43)
[2023-06-01 03:16] LABS: Alanine Aminotransferase 7 U/L (0-41); Albumin Level 4.1 g/dL (3.5-5.2); Alkaline Phosphatase 26 U/L (40-130); Anion Gap 15.4 (5-19); Aspartate Amino Transferase 11 U/L (0-40); Blood Urea Nitrogen 6 mg/dL (6-20); Calcium 8.9 mg/dL (8.5-10.5); Carbon Dioxide 22 mmol/L (22-29); Chloride 108 mmol/L (98-107); Creatinine Clr Calc Pharmacy 151.2004; Globulin 2.1 g/dL (1.3-4.6); Glomerular Filtration Rate 118.8 mL/min (90-130); Glucose 95 mg/dL (65-115); Osmolality Calculated 291 mOsm/kg (285-295); Potassium 3.4 mmol/L (3.5-5.1); Sodium 142 mmol/L (136-145); Total Bilirubin 1.1 mg/dL (0.15-1.2); Total Protein 6.2 g/dL (6.6-8.7)
[2023-06-01] MEDS: ondansetron 2 mg/ML SDV 2 mL 4 MG IVP (08:20)
--- NOTE | 2023-06-01 10:36 | P.PN_ITS ---
Subjective 2 Subjective: Multiple anxiety attacks overnight, exacerbated by presence of NGT. Patient typically self-medicates with marijuana. Denies vomiting. Is now passing flatus. Vitals/I&O/Wt Last Vital Signs Temp 98.2 F 06/01/23 08:33 Pulse 75 06/01/23 08:33 Resp 18 06/01/23 08:33 BP 107/60 06/01/23 08:33 Pulse Ox 97 06/01/23 08:33 O2 Del Method Room Air 06/01/23 08:33 05/31/23 06/01/23 06/01/23 22:59 06:59 14:59 Intake Total 3599.41 / 3599.41 100 / 3699.41 100 / 100 Output Total 400 / 400 175 / 175 Balance 3599.41 / 3599.41 -300 / 3299.41 -75 / -75 Weight last 48 hrs Weight 180 lb Weight 180 lb Weight 180 lb Physical Exam 2 Const: COMMON NORMALS: no acute distress, average body habitus, patient oriented x3 and alert GENERAL APPEARANCE: cooperative, comfortable and well developed HENMT: COMMON NORMALS: normocephalic, atraumatic, external ears normal and Normal external nose present (NGT present) HEAD & SCALP: normocephalic and atraumatic FACE & SINUS: normal facial exam NOSE: Normal external nose present (NGT present) EXTERNAL EAR: Yes external ears normal Eye: COMMON NORMALS: EOMs intact bilaterally and no scleral icterus GENERAL EYE: appearance normal, both eyes and all related structures ALIGNMENT: Yes alignment normal Neck/C-Spine: COMMON NORMALS: full ROM, supple and no JVD GENERAL: Yes normal visual inspection and Yes trachea midline Resp: COMMON NORMALS: normal respiratory effort, No retractions and No use of accessory muscles EFFORT & INSPECTION: Yes able to speak in complete sentences and Yes symmetric chest movement Cardio: COMMON NORMALS: no JVD, regular rate and regular rhythm RATE: r egular rate RHYTHM: regular rhythm PERIPHERAL PULSES: radial pulses present GI: COMMON NORMALS: Soft to palpation and non-tender INSPECTION: Yes scar (prior colostomy site) PALPATION: Yes Soft to palpation, No Tenderness to palpation present (GI), No Guarding due to palpation present (GI) and No Rigid due to palpation RECTAL EXAM: Yes deferred Extremity: COMMON NORMALS: normal to inspection Neuro: COMMON NORMALS: patient oriented x3 SENSORIUM/ORIENTATION: Yes alert Psych: COMMON NORMALS: mental status grossly normal, Normal thought process present, cooperative, normal affect, speech normal and activity/motor behavior normal APPEARANCE: Yes grossly normal ATTITUDE: Yes calm and Yes engaged ACTIVITY/MOTOR BEHAVIOR: Yes appropriate eye contact SPEECH: Yes normal speech MOOD & AFFECT: Yes euthymic mood THOUGHT PROCESS: Normal thought process present THOUGHT CONTENT: Yes Normal thought content present A TTENTION/CONCENTRATION: Yes attention grossly intact and Yes concentration grossly intact MEMORY/COGNITION: Yes memory grossly intact and Yes cognition grossly intact INSIGHT: Good insight present (Psych) JUDGEMENT: Good judgement present (Psych) Skin: COMMON NORMALS: no rashes or lesions noted GENERAL SKIN EXAM: no rashes or lesions noted Data 06/01/23 02:25 06/01/23 02:25 Micro: Microbiology 05/31/23 15:36 Blood Culture - Preliminary Blood SPECIMEN COLLECTED 05/31/23 15:30 Blood Culture - Preliminary Blood SPECIMEN COLLECTED A&P Assessment and plan (1) Intermittent small bowel obstruction due to adhesions: Obstructive symptoms decreasing, now with flatus. Plan for water soluble contrast challenge. Patient strongly motivated to avoid surgery if possible. -100 mL gastrografin via NGT, clamp NGT for 2 hours while head of bed elevated. Assess progress of contrast with abdominal Xray after 6-8 hours, and again tomorrow morning if needed. When contrast reaches colon, remove NGT and advance diet as tolerated. (2) Dehydration: Dehydration due to PO intolerance due to above -IVF Resuscitation per primary medical service Attestations 2 Medical Necessity Statement*: Severe dehydration due to small bowel obstruction due to adhesive disease requiring bowel rest and IVF resuscitation and support greater than 2 midnights. Coding Level of Care Code Acute Code for Chg Fwd Diagnoses Intermittent small bowel obstruction due to adhesions K56.50 Dehydration E86.0
[2023-06-01] MEDS: sodium chloride 0.9% 1,000 ML 75 ML IV (11:35)
[2023-06-01] MEDS: LORazepam 2 mg Tablet PO ×2 (13:19→21:15)
[2023-06-01] MEDS: metoclopramide 5 mg/mL SDV 2 mL IVP (14:26)
--- NOTE | 2023-06-01 15:06 | P.PN_ITS ---
Subjective 2 Subjective: Patient was very anxious overnight. He appears to be withdrawing, possibly from marijuana, cannot rule out possibility of other substances. He has been pacing the hallways, fidgeting, yelling at staff and other patients. Been slamming doors and throwing stuff around in the room. He is able to be redirected. Medications: Reviewed: Yes Vitals/I&O/Wt Last Vital Signs Temp 97.5 F L 06/01/23 12:15 Pulse 61 06/01/23 12:15 Resp 19 H 06/01/23 12:15 BP 110/57 06/01/23 12:15 Pulse Ox 98 06/01/23 12:15 O2 Del Method Room Air 06/01/23 12:15 06/01/23 06/01/23 06/01/23 06:59 14:59 22:59 Intake Total 100 / 3699.41 1100 / 1100 Output Total 400 / 400 175 / 175 Balance -300 / 3299.41 925 / 925 Weight last 48 hrs Weight 81.647 kg Weight 81.647 kg Weight 81.647 kg Physical Exam 2 Narrative: General: Restless, fidgeting in bed HEENT: PERRLA, pupils bilaterally equal and reactive, pallors not present Chest: Normal vesicular breath sounds, no added sounds, equal good air entry bilaterally CVS: S1-S2 regular, no murmurs, no tachycardia, no gallops, no rubs Abdomen: Soft, nontender, no organomegaly, bowel sounds present Neuro: No focal deficits, no facial deformity, AO x3, power 5/5 in all limbs Data 06/01/23 02:25 06/01/23 02:25 Micro: Microbiology 05/31/23 15:36 Blood Culture - Preliminary Blood SPECIMEN COLLECTED 05/31/23 15:30 Blood Culture - Preliminary Blood SPECIMEN COLLECTED A&P Assessment and plan (1) Cannabis use disorder, mild, abuse: (2) Intermittent small bowel obstruction due to adhesions: (3) Dehydration: (4) Substance withdrawal: Plan 23-year-old male presenting with several days of poor p.o. intake, nausea vomiting. Per discussion with ER physician, case was discussed with general surgery on- call, per review of images, it appears there may be a functional small bowel obstruction. Question also raised for possible cholecystitis, ultrasound of the gallbladder is pending. Patient has leukocytosis of 17,000, may be related to dehydration from poor p.o. intake and constant vomiting versus cholecystitis. Start empiric ciprofloxacin and metronidazole while awaiting ultrasound of the gallbladder. NGT is being placed in the emergency room at this time. Will be connected to low intermittent suction. Patient will be NPO. No current hematemesis. Protonix 40 mg IV every 24 hours. IV fluids normal saline at 75 cc an hour As needed Zofran for pain management Check urine drug screen, check alcohol level. DVT prophylaxis: SCDs only, overall low risk For VTE Plan for today June 01, 2023. Gastrografin challenge today. Pending KUB at 6 PM today. Appears to be withdrawing, perhaps from marijuana. Urine drug screen and alcohol level currently pending. Added Ativan as needed for substance withdrawal. Change fluid to D5 normal saline with added KCl for dehydration. Leukocytosis resolved. Given quick resolution suspect this to be related to dehydration rather than underlying infection. Gallbladder ultrasound without any signs of cholecystitis. Discontinue antibiotics. He has had 2-3 bowel movements today. Attestations 2 Medical Necessity Statement*: Continued admission for SBO, pending x-ray KUB later this evening. Coding Level of Care Code Acute Code for Chg Fwd Diagnoses Cannabis use disorder, mild, abuse F12.10 Intermittent small bowel obstruction due to adhesions K56.50 Dehydration E86.0 Substance withdrawal F19.939
[2023-06-01 15:24] LABS: Amphetamines Screen Urine Negative (Negative); Barbiturates Screen Urine Negative (Negative); Benzodiazepines Screen Urine Negative (Negative); Cocaine Screen Urine Negative (Negative); Opiate Screen Urine Negative (Negative); PCP Screen Urine Negative (Negative); THC Screen Urine Positive (Negative)
[2023-06-01 16:09] LABS: Alcohol Level < 10 mg/dL (0-10)
[2023-06-01 16:23] LABS: Hepatitis A Antibody IgM Non-Reactive (Nonreactive); Hepatitis B Core AB, Total Non-Reactive (Nonreactive); Hepatitis B Surface AB < 3.5 (11.5-1000); Hepatitis B Surface Antigen Non-Reactive (Nonreactive); Hepatitis C Virus Antibody Non-Reactive (Nonreactive)
--- NOTE | 2023-06-01 18:00 | XRR_ITS ---
PROCEDURE INFORMATION: Exam: XR Abdomen Exam date and time: 06/01/2023 5:00 PM Age: 23 years old Clinical indication: Screening exam; Other: Sbo gastrograffin; Patient HX: HX sbo; Gastrograffin follow up; Additional info: Water soluble contrast challenge, obtain at 6pm; HX sbo; Gastrograffin follow up TECHNIQUE: Imaging protocol: Radiologic exam of the abdomen. Views: Frontal supine view of the abdomen. 1 View. COMPARISON: CR (ABDOMEN, ) 05/31/2023 4:04 PM FINDINGS: Gastrointestinal tract: There is complete bowel transit of the Gastrografin through the colon and rectum. Bones/joints: Unremarkable. XR/XR KUB [id number] IMPRESSION: Complete bowel transit of the Gastrografin through the colon and rectum. No signs of obstruction.
[2023-06-01] MEDS: pantoprazole 40 mg SDV IVP (18:42)
[2023-06-01] MEDS: D5-NS 0.45% + KCL 20 mEq 20 MEQ/1,000 ML BAG 100 MEQ IV (18:44)
--- NOTE | 2023-06-01 21:11 | PC.NURSE ---
Ng tube removed at this time. Pt tolerated removal well. Ng tube completely intact after removal.
[2023-06-02 03:30] LABS: Basophils % 0.5 %; Eosinophils # 0.1 10^3/uL (0.0-0.8); Eosinophils % 1.4 %; Hematocrit 36.1 % (37-53); Lymphocytes # 2.4 10^3/uL (0.8-4.8); Mean Corpuscular HGB Conc 33.2 g/dL (30-55); Mean Corpuscular Hemoglobin 28.2 pg (27-33); Mean Corpuscular Volume 84.9 fl (82-101); Mean Platelet Volume 9.9 fL (7.4-10.4); Monocytes # 0.5 10^3/uL (0.2-0.9); Monocytes % 8.3 %; Neutrophils # 3.42 10^3/uL (1.8-7.7); Neutrophils % 52.5 %; Nucleated Red Blood Cells % 0 %; Platelet Count 200 10^3/cmm (157-399); Red Blood Count 4.25 10^6/uL (3.85-5.65); Red Cell Distribution Width 13.1 % (12.1-15.1); White Blood Count 6.51 10^3/uL (3.29-11.43)
[2023-06-02 03:46] VITALS: BP 114/67; PULSE 56; RESP 18; TEMP 36.6; O2SAT 96
[2023-06-02 03:49] LABS: Alanine Aminotransferase 7 U/L (0-41); Alkaline Phosphatase 24 U/L (40-130); Anion Gap 11.2 (5-19); Aspartate Amino Transferase 10 U/L (0-40); Blood Urea Nitrogen 4 mg/dL (6-20); Calcium 8.9 mg/dL (8.5-10.5); Carbon Dioxide 26 mmol/L (22-29); Chloride 108 mmol/L (98-107); Creatinine Clr Calc Pharmacy 178.0646; Globulin 1.9 g/dL (1.3-4.6); Glomerular Filtration Rate 138.6 mL/min (90-130); Glucose 97 mg/dL (65-115); Osmolality Calculated 291 mOsm/kg (285-295); Potassium 3.2 mmol/L (3.5-5.1); Sodium 142 mmol/L (136-145); Total Protein 5.9 g/dL (6.6-8.7)
[2023-06-02] MEDS: D5-NS 0.45% + KCL 20 mEq 20 MEQ/1,000 ML BAG 100 MEQ IV (04:18)
--- NOTE | 2023-06-02 07:08 | P.PN_ITS ---
Subjective 2 Subjective: Passed water soluble contrast study yesterday afternoon and had return of bowel function. NGT removed and patient tolerated liquids without N/V. Denies pain or nausea this morning. Vitals/I&O/Wt Last Vital Signs Temp 97.9 F 06/02/23 03:46 Pulse 56 L 06/02/23 03:46 Resp 18 06/02/23 03:46 BP 114/67 06/02/23 03:46 Pulse Ox 96 06/02/23 03:46 O2 Del Method Room Air 06/02/23 03:46 06/01/23 06/02/23 06/02/23 22:59 06:59 14:59 Intake Total 528.75 / 1628.75 1916.667 / 3545.417 Balance 528.75 / 1453.75 1916.667 / 3370.417 Weight last 48 hrs Weight 185 lb Weight 180 lb Weight 180 lb Weight 180 lb Physical Exam 2 Const: COMMON NORMALS: no acute distress, average body habitus, patient oriented x3 and healthy appearing GENERAL APPEARANCE: cooperative, comfortable and well developed HENMT: COMMON NORMALS: normocephalic and atraumatic HEAD & SCALP: n ormocephalic and atraumatic Resp: COMMON NORMALS: normal respiratory effort, No retractions and No use of accessory muscles EFFORT & INSPECTION: Yes able to speak in complete sentences and Yes symmetric chest movement Cardio: COMMON NORMALS: regular rate and regular rhythm RATE: regular rate RHYTHM: regular rhythm PERIPHERAL PULSES: radial pulses present GI: COMMON NORMALS: Normal to inspection, nondistended, normoactive bowel sounds present, Soft to palpation and non-tender PALPATION: Yes Soft to palpation Neuro: COMMON NORMALS: patient oriented x3 Data 06/02/23 02:39 06/02/23 02:39 Micro: Microbiology 05/31/23 15:30 Blood Culture - Preliminary Blood NEGATIVE TO DATE 05/31/23 15:36 Blood Culture - Preliminary Blood SPECIMEN COLLECTED A&P Assessment and plan (1) Intermittent small bowel obstruction due to adhesions: SBO resolved. -Advance diet as tolerated -Remainder of care per primary medical service -Stable for discharge from Surgical perspective Attestations 2 Medical Necessity Statement*: Required admission >2 midnights for management of SBO Coding Level of Care Code Acute Code for Chg Fwd Diagnoses Intermittent small bowel obstruction due to adhesions K56.50
[2023-06-02 08:00] VITALS: BP 103/62; PULSE 68; RESP 16; TEMP 36.9; O2SAT 96
[2023-06-02 09:07] VITALS: PULSE 68; O2SAT 96
--- NOTE | 2023-06-02 10:11 | PC.CHAP ---
Pastoral Care Encounter/Spiritual Assessment Type of Contact [] Declined passenger interline clerk visit [] Patient/Family/Request visit [] Outpatient visit [] Follow-up visit [] Physician referral [] Code/Alert [X] Routine visit [] Staff referral [] Actively dying [] Patient sleeping [X] Family support [] [] Out of room [] Palliative care [] [] Receiving care in room [] Pre-surgical visit [] Trauma [] Long length of stay [] ICU visit [] Other: Relational/Emotional Strength [] Patient feels connected with others/family/visitors/staff [] Distress [] Loneliness/isolation [] Abandonment Spirituality of Patient [X] Person of Lilo [] Attends Anabaptism of their Lilo [X] Believes in Prayer [] Reads Bible or Synagogue materials [] There are Spiritual issues to be addressed Gift Basket Packer Interventions [X] Prayer [X] Active listening [] Non-anxious presence [] Spiritual/emotional support [] Crisis/trauma care [] Spiritual counseling [] Bereavement support [] Provided bereavement packet [X] Provided Bible/devotional materials [] Provided toy/stuffed animal, coloring book to patient or family member [] Provided Communion [] Anointing/[place] [] Salvation [X] Completed spiritual assessment [] Other: Impact on Illness or Injury [] Angry [] Fearful [] Anxious [] Often cries [] Exhaustion [] Unable to work [] Unable to attend rastafari [] Unable to walk/stand [] Unable to read [] Unable to drive [] Unable to eat/drink [] Unable to sleep [] Unable to be with family [] Patient intubated [] Other: Summary Time spent with patient 10 MIN
--- NOTE | 2023-06-02 10:34 | PM.DCS ---
Discharge Providers Date of Admission: 05/31/23 15:26 Date of Discharge: June 02, 2023 Attending Provider at Admission: Brittaney Tsai MD Attending Provider at Discharge: Niranjan Saldana MD Diagnoses at Discharge Discharge Diagnosis (1) Intermittent small bowel obstruction due to adhesions: Status: Acute Reason for Visit Reason for Visit: vomiting blood Hospital Course Hospital Course 23-year-old male presenting with several days of poor p.o. intake, nausea vomiting. Admitted for possible SBO. general surgery consulted and gastrografin challenge, NPO and NG tube was ordered. leukocytosis on admission 2/2 dehydration. NG tube was successful in decompressing abdomen, gastrografin chellence was negative thus no SBO visible. Pt was fairly anxious and disruptive during hospital course 2/2 anxiety; however by day of discharge, once sx resolved, his anxiety resolved as well and was fairly pleasant. on 06/02/23 general surgery cleared him for discharge. no underlying infection, GB negative for cholecystitis. Pt was cleared by surgery for discharge after tolerating liquid diet, passing gas and two BM's. at time of discharge pt had no abdominal pain and no anxiety Physical Exam Narrative: General: AOx3, no acute distress, well developed, well nourished, appears stated age psych: appropriate mood and affect. good judgment and insight. No suicidal or homicidal ideation. Oropharynx: poor dentition, pink moist mucosa, non-deviated tongue, no buccal nodules/lesions. no pharyngeal exudate CVD: RRR, normal S1 and S2, no M/R/G. 2+ pulse x 4 extremities, Lungs: clear lung sounds in all baum, no rhonchi, wheezing, rales. Abdomen: NT, ND, soft, NABS. No hepatosplenomegaly, no mass. umbilicus midline w/o herniation Skin:? no rash, vesicles, lesions. Discharge Data Studies Completed and Pending Completed Studies During Hospitalization Category Date Time Status CT abdomen pelvis w con* [id number] Stat Cat Scan 05/31/23 13:55 Completed XR KUB [id number] Routine Exams 06/01/23 18:00 Completed XR abdomen 1V* [id number] Stat Exams 05/31/23 15:21 Completed US gall bladder [id number] Stat Ultrasound 05/31/23 15:16 Completed Pending at discharge Category Date Time Status Blood Culture Stat Lab 05/31/23 15:36 Results Radiology Impressions Abdomen/Pelvis CT 05/31/23 13:55 IMPRESSION: No acute findings. Gallbladder Ultrasound 05/31/23 15:16 IMPRESSION: No acute findings. Abdomen X-Ray 05/31/23 15:21 IMPRESSION: NG tube tip proximal stomach. Please note, only upper abdomen is imaged. KUB X-Ray 06/01/23 18:00 IMPRESSION: Complete bowel transit of the Gastrografin through the colon and rectum. No signs of obstruction. Laboratory Results WBC 6.51 10^3/uL (3.29-11.43) 06/02/23 02:39 RBC 4.25 10^6/uL (3.85-5.65) 06/02/23 02:39 Hgb 12.00 g/dL (11.27-16.99) 06/02/23 02:39 Hct 36.1 % (37-53) L 06/02/23 02:39 MCV 84.9 fl (82-101) 06/02/23 02:39 MCH 28.2 pg (27-33) 06/02/23 02:39 MCHC 33.2 g/dL (30-55) 06/02/23 02:39 RDW 13.1 % (12.1-15.1) 06/02/23 02:39 Plt Count 200 10^3/cmm (157-399) 06/02/23 02:39 MPV 9.9 fL (7.4-10.4) 06/02/23 02:39 Neut % (Auto) 52.5 % 06/02/23 02:39 Lymph % (Auto) 37.0 % 06/02/23 02:39 [place] % (Auto) 8.3 % 06/02/23 02:39 Eos % (Auto) 1.4 % 06/02/23 02:39 Baso % (Auto) 0.5 % 06/02/23 02:39 Neut # (Auto) 3.42 10^3/uL (1.8-7.7) 06/02/23 02:39 Lymph # (Auto) 2.4 10^3/uL (0.8-4.8) 06/02/23 02:39 [place] # (Auto) 0.5 10^3/uL (0.2-0.9) 06/02/23 02:39 Eos # (Auto) 0.1 10^3/uL (0.0-0.8) 06/02/23 02:39 Baso # (Auto) 0.0 10^3/uL (0.0-0.1) 06/02/23 02:39 Nucleated RBC % (auto) 0 % 06/02/23 02:39 Nucleated RBCs # 0.0 /100WBC 06/02/23 02:39 Sodium 142 mmol/L (136-145) 06/02/23 02:39 Potassium 3.2 mmol/L (3.5-5.1) L 06/02/23 02:39 Chloride 108 mmol/L (98-107) H 06/02/23 02:39 Carbon Dioxide 26 mmol/L (22-29) 06/02/23 02:39 Anion Gap 11.2 (5-19) 06/02/23 02:39 BUN 4 mg/dL (6-20) L 06/02/23 02:39 Creatinine 0.7 mg/dL (0.7-1.2) 06/02/23 02:39 GFR Calculation 138.6 mL/min (90-130) H 06/02/23 02:39 Glucose 97 mg/dL (65-115) 06/02/23 02:39 Calculated Osmolality 291 mOsm/kg (285-295) 06/02/23 02:39 Lactic Acid 2.9 mmol/L (0.5-2.2) H 05/31/23 13:17 Lactic Acid (Sepsis) 1.2 mmol/L (0.5-2.2) 05/31/23 17:02 Calcium 8.9 mg/dL (8.5-10.5) 06/02/23 02:39 Total Bilirubin 1.0 mg/dL (0.15-1.2) 06/02/23 02:39 AST 10 U/L (0-40) 06/02/23 02:39 ALT 7 U/L (0-41) 06/02/23 02:39 Alkaline Phosphatase 24 U/L (40-130) L 06/02/23 02:39 Total Protein 5.9 g/dL (6.6-8.7) L 06/02/23 02:39 Albumin 4.0 g/dL (3.5-5.2) 06/02/23 02:39 Globulin 1.9 g/dL (1.3-4.6) 06/02/23 02:39 Lipase 13 U/L (13-60) 05/31/23 13:17 Procalcitonin 0.04 ng/mL (0-0.5) 05/31/23 13:17 TSH 1.25 uIU/mL (0.27-4.20) 05/31/23 15:51 Urine Color Yellow (Yellow) 05/31/23 16:46 Urine Appearance Clear (CLEAR) 05/31/23 16:46 Urine pH 6.5 (5-7) 05/31/23 16:46 Ur Specific [place] 1.010 (1.005-1.030) 05/31/23 16:46 Urine Protein 1+ (Negative) H 05/31/23 16:46 Urine Glucose (UA) Norm (Normal) 05/31/23 16:46 Urine Ketones 3+ (Negative) H 05/31/23 16:46 Urine Blood Neg (Negative) 05/31/23 16:46 Urine Nitrate Negative (Negative) 05/31/23 16:46 Urine Bilirubin 1+ (Negative) H 05/31/23 16:46 Urine Urobilinogen 1 mg/dL (Negative) H 05/31/23 16:46 Ur Leukocyte Esterase Negative (Negative) 05/31/23 16:46 Urine RBC None /hpf (0-2) 05/31/23 16:46 Urine WBC Rare /hpf (0-5) 05/31/23 16:46 Ur Squamous Epith Cells None /hpf (0-5) 05/31/23 16:46 Amorphous Sediment Not Reportable 05/31/23 16:46 Urine Bacteria Trace /hpf (NONE) 05/31/23 16:46 Urine Mucus 2+ /hpf 05/31/23 16:46 Urine Opiates Screen Negative ng/mL (Negative) 05/31/23 16:46 Ur Barbiturates Screen Negative ng/mL (Negative) 05/31/23 16:46 Ur Phencyclidine Scrn Negative ng/mL (Negative) 05/31/23 16:46 Ur Amphetamines Screen Negative ng/mL (Negative) 05/31/23 16:46 U Benzodiazepines Scrn Negative ng/mL (Negative) 05/31/23 16:46 Urine Cocaine Screen Negative ng/mL (Negative) 05/31/23 16:46 U Marijuana (THC) Screen Positive ng/mL (Negative) H 05/31/23 16:46 Ethyl Alcohol < 10 mg/dL (0-10) 06/01/23 02:25 Hepatitis A IgM Ab Non-reactive (Nonreactive) 06/01/23 02:25 Hep Bs Antigen Non-reactive (Nonreactive) 06/01/23 02:25 Hep Bs Antibody < 3.5 (11.5-1000) L 06/01/23 02:25 Hep B Core Total Ab Non-reactive (Nonreactive) 06/01/23 02:25 Hepatitis C Antibody Non-reactive (Nonreactive) 06/01/23 02:25 Vitals Last Vital Signs Temp 98.4 F 06/02/23 08:00 Pulse 68 06/02/23 09:07 Resp 16 06/02/23 08:00 BP 103/62 06/02/23 08:00 Pulse Ox 96 06/02/23 09:07 O2 Del Method Room Air 06/02/23 09:07 Discharge Plan Discharge Patient Disposition: Home Condition: Stable Prescriptions: New ondansetron 4 mg tablet,disintegrating 4 mg PO Q8H 2 Days Qty: 6 0RF albuterol sulfate 90 mcg/actuation HFA aerosol inhaler 1 inh inhalation Q6H PRN (Reason: shortness of breath or wheezing) Qty: 6.7 0RF Discharge Orders: Discharge Order (Routine); Ordered 06/02/23 Ordered By: Niranjan Saldana Referrals: [facility] [Other] (7 days/week 8am-6pm) [facility] [Outside] (? Follow up as a walk in at [facility], walk in hours are Friday-Friday from 7:30AM-3:00PM, first come, first seen. Once you do this assessment you will be referred for appropriate services.) Discharge Diet: Advance as tolerated Discharge Activity: Resume usual activity Patient Instructions: Opioid Safety Discharge Attestations Time Spent in Discharge Care*: less than 30 min Quality Metrics Clinical Quality Measures [ No reported AMI, CVA or VTE this stay] Coding Level of Care Code 18109 Diagnoses Intermittent small bowel obstruction due to adhesions K56.50
[2023-06-02 12:00] VITALS: BP 137/74; PULSE 80; RESP 18; TEMP 37.1; O2SAT 96
[2023-06-02 13:40] VITALS: BP 137/74; PULSE 80; RESP 18; TEMP 37.1; O2SAT 96
--- NOTE | 2023-06-02 13:41 | PC.NURSE ---
Patient is A&Ox3. Respirations even and non-labored on room air. Reviewed patient discharge with patient at this time with significant other present. Patient verbalized understanding of discharge instructions including follow up appointments and new medications and how to take them. Patient ambulated outside with a steady gait.
== END 2023-06-02 13:40 | disposition home or self-care (01) | DRG 390 ==
LOC: ER 16:37 → MEDSURG 17:58
PROVIDERS: Physician Assistant; Admitting Provider Student in an Organized Health Care Education/Training Program; Emergency Provider Internal Medicine; Visit Provider Family Medicine
DX: K56.50 Intestinal adhesions [bands], unspecified as to partial versus complete obstruction (principal); F12.13 Cannabis abuse with withdrawal; F41.9 Anxiety disorder, unspecified; F17.290 Nicotine dependence, other tobacco product, uncomplicated; E86.0 Dehydration; F41.0 Panic disorder [episodic paroxysmal anxiety]
CPT/HCPCS: 36415; 74018; 74177; 76705; 80053; 80306; 80307; 81001; 83605; 83690; 84145; 84443; 85025; 86705; 86706; 86709; 86803; 87040; 87340; 96365; 96367; 96375; 99285; C9113; J0696; J2270; J2405; J2765; J3490; J7030; Q9967

== ENCOUNTER 2023-07-13 09:56 | Emergency (ER) | payer OTHER, SELFPAY ==
[2023-07-13 09:58] VITALS: BP 141/80; PULSE 62; RESP 16; TEMP 36.4; O2SAT 97
[2023-07-13 10:41] LABS: Basophils % 0.3 %; Eosinophils # 0.5 10^3/uL (0.0-0.8); Eosinophils % 4.5 %; Hematocrit 48.2 % (37-53); Lymphocytes % 10.1 %; Mean Corpuscular HGB Conc 32.4 g/dL (30-55); Mean Corpuscular Hemoglobin 28.7 pg (27-33); Mean Corpuscular Volume 88.8 fl (82-101); Mean Platelet Volume 9.4 fL (7.4-10.4); Monocytes # 0.7 10^3/uL (0.2-0.9); Monocytes % 6.6 %; Neutrophils % 78.1 %; Nucleated Red Blood Cells % 0 %; Platelet Count 261 10^3/cmm (157-399); Red Blood Count 5.43 10^6/uL (3.85-5.65); Red Cell Distribution Width 12.7 % (12.1-15.1); White Blood Count 9.99 10^3/uL (3.29-11.43)
[2023-07-13 10:58] LABS: Alanine Aminotransferase 10 U/L (0-41); Albumin Level 4.6 g/dL (3.5-5.2); Alkaline Phosphatase 34 U/L (40-130); Anion Gap 17.9 (5-19); Aspartate Amino Transferase 14 U/L (0-40); Blood Urea Nitrogen 7 mg/dL (6-20); Calcium 9.6 mg/dL (8.5-10.5); Carbon Dioxide 23 mmol/L (22-29); Chloride 105 mmol/L (98-107); Creatinine Clr Calc Pharmacy 136.8707; Globulin 2.9 g/dL (1.3-4.6); Glomerular Filtration Rate 103.7 mL/min (90-130); Glucose 109 mg/dL (65-115); Lipase 20 U/L (13-60); Osmolality Calculated 293 mOsm/kg (285-295); Potassium 3.9 mmol/L (3.5-5.1); Sodium 142 mmol/L (136-145); Total Bilirubin 0.6 mg/dL (0.15-1.2); Total Protein 7.5 g/dL (6.6-8.7)
[2023-07-13 11:01] LABS: Lactic Sepsis W/Reflex 2.9 mmol/L (0.5-2.2)
[2023-07-13 12:26] LABS: Reflex Lactate Order REFLEX LACTIC ORDERD
--- NOTE | 2023-07-13 12:41 | CTR_ITS ---
PROCEDURE INFORMATION: Exam: CT Abdomen And Pelvis With Contrast Exam date and time: 07/13/2023 12:59 PM Age: 23 years old Clinical indication: Nausea and vomiting; Abdominal pain; Generalized; Additional info: Abd pain TECHNIQUE: Imaging protocol: Computed tomography of the abdomen and pelvis with contrast. Radiation optimization: All CT scans at this facility use at least one of these dose optimization techniques: automated exposure control; mA and/or kV adjustment per patient size (includes targeted exams where dose is matched to clinical indication); or iterative reconstruction. Contrast material: OMNI 350; Contrast volume: 100 ml; Contrast route: INTRAVENOUS (IV); COMPARISON: CT abdomen pelvis w con* [id number] 05/31/2023 2:12 PM RADIATION DOSE METRICS: Total DLP (mGy-cm): 481.23 FINDINGS: Liver: Normal. No mass. Gallbladder and bile ducts: Normal. No calcified stones. No ductal dilation. Pancreas: Normal. No ductal dilation. Spleen: Normal. No splenomegaly. Adrenal glands: Normal. No mass. Kidneys and ureters: Normal. No hydronephrosis. Stomach and bowel: Unremarkable. No obstruction. No mucosal thickening. Appendix: No evidence of appendicitis. Intraperitoneal space: Unremarkable. No free air. No significant fluid collection. Vasculature: Unremarkable. No abdominal aortic aneurysm. Lymph nodes: Unremarkable. No enlarged lymph nodes. Urinary bladder: Unremarkable as visualized. Reproductive: Unremarkable as visualized. Bones/joints: Unremarkable. No acute fracture. Soft tissues: Unremarkable. CT/CT abdomen pelvis w con* [id number] IMPRESSION: No acute findings.
[2023-07-13] MEDS: ondansetron 2 mg/ML SDV 2 mL 4 MG IVP (12:56)
[2023-07-13] MEDS: sodium chloride 0.9% 1,000 ML 999 ML IV ×2 (12:56→14:27)
[2023-07-13 13:01] VITALS: RESP 18; O2SAT 99
--- NOTE | 2023-07-13 13:07 | ED_ITS ---
HPI - Nausea/Vomiting/Diarrhea 2 General: Chief complaint: Nausea/Vomiting/Diarrhea Stated complaint: n/v/d Time Seen by Provider: 07/13/23 12:40 Source: patient Mode of arrival: ambulatory History of Present Illness: 23-year-old male presents to the emergen cy room with nausea vomiting diarrhea. Patient has had diarrhea for couple days ago. He began having nausea vomiting he cannot keep anything down he gets very nauseous even with fluids. Couple weeks ago he was hospitalized and treated conservatively for a bowel obstruction MD elicited complaint: nausea and vomiting Associated nausea: Yes Associated symtoms: Reports nausea; Denies chest pain or dysuria Review of Systems 2 Const: Denies: fever(s) or chills Card: Denies: chest pain Resp: Denies: dyspnea GI: Reports: abdominal pain, nausea and vomiting : Denies: dysuria, urinary frequency or urinary urgency Musc: Denies: neck pain or back pain Skin/Breast: Denies: rash PFSH ED 2 PFSH: Medical History Substance withdrawal Dehydration Surgical History History of colostomy reversal Social History Smoking and tobacco/nicotine status: current every day tobacco/nicotine user (vape) e-cigarettes E-Cigarette Details: vaporizer device and with nicotine E- cig/vape details: Uses a stick in about 1.5 weeks. Quit status (tobacco/nicotine): considering quitting Second hand smoke exposure: No Physical Exam 2 Const: COMMON NORMALS: no acute distress GENERAL APPEARANCE: cooperative and comfortable ORIENTATION/CONSCIOUSNESS: Yes awake, Yes oriented to person, Yes oriented to place and Yes oriented to time HENMT: COMMON NORMALS: normocephalic, atraumatic and hearing grossly normal bilaterally HEAD & SCALP: normocephalic and atraumatic Resp: COMMON NORMALS: normal respiratory effort, No retractions, No use of accessory muscles and clear to auscultation bilaterally AUSCULTATION: clear to auscultation bilaterally Cardio: COMMON NORMALS: regular rate, regular rhythm and No murmurs present (Cardio) RATE: regular rate RHYTHM: regular rhythm GI: COMMON NORMALS: Soft to palpation and No hepatosplenomegaly present A USCULTATION: Yes normoactive bowel sounds PALPATION: Yes Soft to palpation, No Tenderness to palpation present (GI), No Guarding due to palpation present (GI) and Yes No hepatosplenomegaly present Extremity: COMMON NORMALS: normal to inspection, capillary refill normal, no clubbing, cyanosis or edema, no calf tenderness and no pedal edema Neuro: SENSORIUM/ORIENTATION: Yes oriented to person, Yes oriented to place and Yes oriented to time Skin: COMMON NORMALS: no rashes or lesions noted GENERAL SKIN EXAM: no rashes or lesions noted Course 2 Vital Signs: Vital signs: Vital Signs Temperature 97.6 F 07/13/23 09:58 Pulse Rate 62 07/13/23 09:58 Respiratory Rate 18 07/13/23 14:06 Blood Pressure 141/80 07/13/23 09:58 Pulse Oximetry 98 07/13/23 14:06 Oxygen Delivery Me thod Room Air 07/13/23 14:06 MDM - Nausea/Vomiting/Diarrhea Medical Decision Making CT is negative patient has a mild elevation of lactic acid but no other signs of sepsis at all no fever. His CT did not show any acute pathology was given IV fluids. He is feeling somewhat better will discharge patient home with promethazine to use as needed clinical diet for next 24-40 has has any worsening or change symptoms return to reevaluate. Medical Records I reviewed the patient's medical records. Lab Data I reviewed the patient's lab results. 07/13/23 10:29 07/13/23 13:55 Radiology Impressions Abdomen/Pelvis CT 07/13/23 12:41 IMPRESSION: No acute findings. Laboratory Results WBC 9.99 10^3/uL (3.29-11.43) 07/13/23 10:29 RBC 5.43 10^6/uL (3.85-5.65) 07/13/23 10:29 Hgb 15.60 g/dL (11.27-16.99) 07/13/23 10:29 Hct 48.2 % (37-53) 07/13/23 10:29 MCV 88.8 fl (82-101) 07/13/23 10:29 MCH 28.7 pg (27-33) 07/13/23 10:29 MCHC 32.4 g/dL (30-55) 07/13/23 10: RDW 12.7 % (12.1-15.1) 07/13/23 10:29 Plt Count 261 10^3/cmm (157-399) 07/13/23 10: MPV 9.4 fL (7.4-10.4) 07/13/23 10: Neut % (Auto) 78.1 % 07/13/23 10:29 Lymph % (Auto) 10.1 % 07/13/23 10:29 [place] % (Auto) 6.6 % 07/13/23 10:29 Eos % (Auto) 4.5 % 07/13/23 10: Baso % (Auto) 0.3 % 07/13/23 10: Neut # (Auto) 7.80 10^3/uL (1.8-7.7) H 07/13/23 10: Lymph # (Auto) 1.0 10^3/uL (0.8-4.8) 07/13/23 10: [place] # (Auto) 0.7 10^3/uL (0.2-0.9) 07/13/23 10:29 Eos # (Auto) 0.5 10^3/uL (0.0-0.8) 07/13/23 10: Baso # (Auto) 0.0 10^3/uL (0.0-0.1) 07/13/23 10: Nucleated RBC % (auto) 0 % 07/13/23 10: Nucleated RBCs # 0.0 /100WBC 07/13/23 10:29 Sodium 143 mmol/L (136-145) 07/13/23 13:55 Potassium 4.5 mmol/L (3.5-5.1) 07/13/23 13:55 Chloride 106 mmol/L (98-107) 07/13/23 13:55 Carbon Dioxide 30 mmol/L (22-29) H 07/13/23 13:55 Anion Gap 11.5 (5-19) 07/13/23 13:55 BUN 6 mg/dL (6-20) 07/13/23 13:55 Creatinine 0.8 mg/dL (0.7-1.2) 07/13/23 13:55 GFR Calculation 118.8 mL/min (90-130) 07/13/23 13:55 Glucose 112 mg/dL (65-115) 07/13/23 13:55 Calculated Osmolality 294 mOsm/kg (285-295) 07/13/23 13:55 Lactic Acid 2.9 mmol/L (0.5-2.2) H 07/13/23 10:29 Lactic Acid (Sepsis) 1.7 mmol/L (0.5-2.2) 07/13/23 13:55 Calcium 8.7 mg/dL (8.5-10.5) 07/13/23 13:55 Total Bilirubin 0.6 mg/dL (0.15-1.2) 07/13/23 13:55 AST 13 U/L (0-40) 07/13/23 13:55 ALT 9 U/L (0-41) 07/13/23 13:55 Alkaline Phosphatase 31 U/L (40-130) L 07/13/23 13:55 C-Reactive Protein 3.0 mg/L (0.0-4.9) 07/13/23 10:29 Total Protein 6.9 g/dL (6.6-8.7) 07/13/23 13:55 Albumin 4.5 g/dL (3.5-5.2) 07/13/23 13:55 Globulin 2.4 g/dL (1.3-4.6) 07/13/23 13:55 Lipase 20 U/L (13-60) 07/13/23 10:29 Urine Color Straw (Yellow) 07/13/23 14:20 Urine Appearance Clear (CLEAR) 07/13/23 14:20 Urine pH 8 (5-7) H 07/13/23 14:20 Ur Specific [place] 1.015 (1.005-1.030) 07/13/23 14:20 Urine Protein Neg (Negative) 07/13/23 14:20 Urine Glucose (UA) Norm (Normal) 07/13/23 14:20 Urine Ketones Negative (Negative) 07/13/23 14:20 Urine Blood Neg (Negative) 07/13/23 14:20 Urine Nitrate Negative (Negative) 07/13/23 14:20 Urine Bilirubin Neg (Negative) 07/13/23 14:20 Prot Sulfosalicylic Acd Negative (Negative) 05/19/24 14:20 Urine Urobilinogen Norm mg/dL (Negative) 07/13/23 14:20 Ur Leukocyte Esterase Negative (Negative) 07/13/23 14:20 All radiology interpretation(s) finalized by discharge Discharge Plan Discharge Patient Disposition: Home Clinical Impression: Abdominal pain Condition: Stable Prescriptions: New promethazine 25 mg tablet 20 mg PO Q6H PRN (Reason: nausea and vomiting) Qty: 20 0RF No Action albuterol sulfate 90 mcg/actuation HFA aerosol inhaler 1 inh inhalation Q6H PRN (Reason: shortness of breath or wheezing) Qty: 6.7 0RF Discharge Orders: Discharge ED (Routine); Ordered 07/13/23 Ordered By: Ian Guerra Discharge Diet: Clear Liquid Discharge Activity: Increase activity as tolerated Patient Instructions: Abdominal Pain (ED), Opioid Safety, Pain Management Activity Restrictions/Additional Instructions: Thank you for choosing [facility] for your healthcare needs today. Please realize this is an emergency room and that we are providing you with a medical screening exam and this may not be complete and all inclusive of all the testing and or work up that you may need to determine your ailment or severity of your illness. It is very important that you follow up as instructed or that you return to the Emergency Department should you have concerns or if your condition changes or worsens in any way. You are seen today for abdominal pain with nausea vomiting and diarrhea. CT did not show signs of bowel obstruction your laboratory studies were normal with the exception of slight elevation in lactic acid. You are given IV fluids in the emergency room recommend clear liquid diet for the next 24 to 48 hours use Phenergan as needed for nausea vomiting return if you have worsening symptoms. Coding Level of Care Code ED Electronic Operator for Jennifer Cantu
[2023-07-13 14:06] VITALS: RESP 18; O2SAT 98
[2023-07-13 14:35] LABS: Add Urine Microscopic? NO; Charge for UA Resulting for Rev
[2023-07-13 14:42] LABS: Urine Appearance Clear (CLEAR); Urine Color Straw (Yellow); pH Urine 8 (5-7)
[2023-07-13 14:43] LABS: Bilirubin Urine Neg (Negative); Blood Urine Neg (Negative); Glucose Urine UA Norm (Normal); Ketones Urine Negative (Negative); Leukocyte Esterase Urine Negative (Negative); Nitrate Urine Negative (Negative); Protein Urine Neg (Negative); Specific Gravity, Urine 1.015 (1.005-1.030); Sulfosalicylic Acid Urine Negative (Negative); Urobilinogen Urine Norm (Negative)
[2023-07-13 14:53] LABS: Lactic Acid level (Lactate) 1.7 mmol/L (0.5-2.2)
[2023-07-13 14:54] LABS: Alanine Aminotransferase 9 U/L (0-41); Albumin Level 4.5 g/dL (3.5-5.2); Alkaline Phosphatase 31 U/L (40-130); Anion Gap 11.5 (5-19); Aspartate Amino Transferase 13 U/L (0-40); Blood Urea Nitrogen 6 mg/dL (6-20); Calcium 8.7 mg/dL (8.5-10.5); Carbon Dioxide 30 mmol/L (22-29); Chloride 106 mmol/L (98-107); Creatinine Clr Calc Pharmacy 153.9795; Globulin 2.4 g/dL (1.3-4.6); Glomerular Filtration Rate 118.8 mL/min (90-130); Glucose 112 mg/dL (65-115); Osmolality Calculated 294 mOsm/kg (285-295); Potassium 4.5 mmol/L (3.5-5.1); Sodium 143 mmol/L (136-145); Total Bilirubin 0.6 mg/dL (0.15-1.2); Total Protein 6.9 g/dL (6.6-8.7)
== END 2023-07-13 15:56 | disposition home or self-care (01) ==
PROVIDERS: Emergency Medicine; Emergency Provider Family Medicine
DX: R10.9 Unspecified abdominal pain (principal); F17.290 Nicotine dependence, other tobacco product, uncomplicated
CPT/HCPCS: 74177; 80053; 81003; 83605; 83690; 85025; 86140; 96361; 96374; 99285; J2405; J7030; Q9967

== ENCOUNTER 2023-07-18 12:10 | Emergency (ER) | payer OTHER, SELFPAY ==
[2023-07-18 12:28] LABS: Basophils % 0.2 %; Eosinophils % 0.1 %; Hematocrit 46.7 % (37-53); Lymphocytes # 0.7 10^3/uL (0.8-4.8); Lymphocytes % 5.1 %; Mean Corpuscular Hemoglobin 29.1 pg (27-33); Mean Corpuscular Volume 88.1 fl (82-101); Mean Platelet Volume 9.2 fL (7.4-10.4); Monocytes # 0.3 10^3/uL (0.2-0.9); Monocytes % 2.3 %; Neutrophils # 11.77 10^3/uL (1.8-7.7); Neutrophils % 92.1 %; Nucleated Red Blood Cells % 0 %; Platelet Count 280 10^3/cmm (157-399); Red Cell Distribution Width 13.1 % (12.1-15.1); White Blood Count 12.78 10^3/uL (3.29-11.43)
[2023-07-18 12:48] LABS: Alanine Aminotransferase 10 U/L (0-41); Alkaline Phosphatase 34 U/L (40-130); Anion Gap 16.3 (5-19); Aspartate Amino Transferase 15 U/L (0-40); Blood Urea Nitrogen 8 mg/dL (6-20); Calcium 10.4 mg/dL (8.5-10.5); Carbon Dioxide 28 mmol/L (22-29); Chloride 100 mmol/L (98-107); Globulin 3.2 g/dL (1.3-4.6); Glomerular Filtration Rate 103.7 mL/min (90-130); Glucose 144 mg/dL (65-115); Lipase 15 U/L (13-60); Osmolality Calculated 291 mOsm/kg (285-295); Potassium 4.3 mmol/L (3.5-5.1); Sodium 140 mmol/L (136-145); Total Protein 8.2 g/dL (6.6-8.7)
--- NOTE | 2023-07-18 13:13 | ED_ITS ---
HPI - Abdominal Pain 2 General: Chief Complaint: Abdominal Pain Stated Complaint: abd pain Time Seen by Provider: 07/18/23 12:58 Source: patient Mode of arrival: ambulatory Limitations: no limitations History of Present Illness: Patient is a 23-year-old male who presents to ED today with complaint of diffuse abdominal pain, nausea, vomiting. He states he has not been able to hold anything down over the past few days. He arrives in no acute distress with stable vital signs. Patient states he has intermittently had similar symptoms over the past year or so. He has been seen here in the emergency department a few times for symptoms. He has had several negative CT abdomen/pelvis imaging. On one visit he was admitted to the hospital after general surgery personal interpretation of CT scan was suspicious for SBO. He was treated with NG tube. He ended up having a normal Gastrografin bowel transit study. Patient does admit to habitual marijuana use. He has not been running fevers. Normal stooling. Previous abdominal history includes a colostomy at age 6 and reversal at age 17, presumably for partial aganglionic distal colon. MD elicited complaint: abdominal pain Onset (ago): day(s) Pain Consistency: constant Location: Diffuse Severity: severe Quality: cramping Radiation: none Migration to: no migration Exacerbating factors: eating Relieving factors: nothing Context: history of similar episodes Associated Symptoms: Reports nausea and vomiting; Denies chills, diarrhea, dysuria, fever(s), heartburn, hematemesis and syncope Review of Systems 2 Const: Denies: fever(s), chills, body aches, fatigue or malaise Eyes: Denies: change in vision or blurry vision Card: Denies: chest pain, palpitations, irregular heart rhythm, lightheadedness, syncope or dyspnea on exertion Resp: Denies: dyspnea, productive cough or pain on inspiration GI: Reports: abdominal pain, nausea and vomiting; Denies: hematemesis, heartburn or diarrhea : Denies: flank pain, difficulty urinating or dysuria Musc: Denies: neck pain, back pain, extremity pain, extremity swelling or joint pain Skin/Breast: Denies: rash Neuro: Denies: headache(s), numbness in extremities, weakness in extremities, sensory changes or dizziness PFSH ED 2 PFSH: Medical History Substance withdrawal Dehydration Surgical History History of colostomy reversal Social History Smoking and tobacco/nicotine status: current every day tobacco/nicotine user (vape) e-cigarettes E-Cigarette Details: vaporizer device and with nicotine E- cig/vape details: Uses a stick in about 1.5 weeks. Quit status (tobacco/nicotine): considering quitting Second hand smoke exposure: No Physical Exam 2 Const: COMMON NORMALS: no acute distress, average body habitus, patient oriented x3, no limitations, healthy appearing, alert and well nourished G ENERAL APPEARANCE: cooperative ORIENTATION/CONSCIOUSNESS: Yes awake, Yes oriented to person, Yes oriented to place and Yes oriented to time Resp: COMMON NORMALS: normal respiratory effort and clear to auscultation bilaterally AUSCULTATION: clear to auscultation bilaterally Cardio: COMMON NORMALS: regular rate and regular rhythm RATE: regular rate RHYTHM: regular rhythm GI: COMMON NORMALS: Normal to inspection, nondistended, normoactive bowel sounds present, Soft to palpation, No hepatosplenomegaly present and no masses INSPECTION: Yes normal to inspection AUSCULTATION: Yes normoactive bowel sounds PALPATION: Yes Soft to palpation, Yes Tenderness to palpation present (GI) (diffusely), Yes Guarding due to palpation present (GI) and Yes No hepatosplenomegaly present : COMMON NORMALS: Yes no CVA tenderness BLADDER/KIDNEY EXAM: Yes no CVA tenderness Back/Pelvis: COMMON NORMALS: no CVA tenderness Extremity: GENERAL: Yes normal exam except as noted Neuro: NGOC COMA SCALE: document GCS findings Ngoc coma scale eye opening: Spontaneous Ngoc coma scale verbal response: Orientated Ngoc coma scale motor response: Obey commands Ngoc coma scale total score: 15 COMMON NORMALS: patient oriented x3 SENSORIUM/ORIENTATION: Yes alert, Yes oriented to person, Yes oriented to place and Yes oriented to time Skin: COMMON NORMALS: no rashes or lesions noted GENERAL SKIN EXAM: no rashes or lesions noted Course 2 Vital Signs: Vital signs: Vital Signs Temperature 98.3 F 07/18/23 13:25 Pulse Rate 64 07/18/23 14:55 Respiratory Rate 18 07/18/23 13:22 Blood Pressure 116/56 07/18/23 14:55 Pulse Oximetry 94 07/18/23 14:55 MDM - Abdominal Pain Medical Decision Making Patient arrives in no acute distress with stable vital signs. He did have diffuse abdominal tenderness. His blood work overall is unremarkable. His CT scan showing no acute abdominal or pelvic abnormalities. He gained significant relief of his symptoms after IV fluids and Ativan/Haldol. I think symptoms at this time are related to a cannabis hyperemesis syndrome. I will place him on Ativan and Zyprexa at home over the next couple of days to see if this will help. He was recommended to do a bland liquid diet and advance from there. We did discuss his marijuana use-he states he does this eventually to help with his anxiety. Return to ED precautions given. Differential Diagnosis Likely abdominal pain, gastroenteritis and small bowel obstruction Medical Records I reviewed the patient's medical records. Lab Data I reviewed the patient's lab results. 07/18/23 12:21 07/18/23 12:21 Labs/Radiology: Radiology Impressions Abdomen/Pelvis CT 07/18/23 13:27 IMPRESSION: 1. No acute abdominal or pelvic abnormalities are identified. 2. No ascites or free air. 3. Postsurgical changes at the cecum. The appendix is not definitely identified but there is no evidence for acute appendicitis. 4. Hepatic steatosis along the falciform ligament. 5. Moderate fluid distention of the stomach. Laboratory Results WBC 12.78 10^3/uL (3.29-11.43) H 07/18/23 12:21 RBC 5.30 10^6/uL (3.85-5.65) 07/18/23 12:21 Hgb 15.40 g/dL (11.27-16.99) 07/18/23 12:21 Hct 46.7 % (37-53) 07/18/23 12:21 MCV 88.1 fl (82-101) 07/18/23 12:21 MCH 29.1 pg (27-33) 07/18/23 12:21 MCHC 33.0 g/dL (30-55) 07/18/23 12:21 RDW 13.1 % (12.1-15.1) 07/18/23 12:21 Plt Count 280 10^3/cmm (157-399) 07/18/23 12:21 MPV 9.2 fL (7.4-10.4) 07/18/23 12:21 Neut % (Auto) 92.1 % 07/18/23 12:21 Lymph % (Auto) 5.1 % 07/18/23 12:21 [place] % (Auto) 2.3 % 07/18/23 12:21 Eos % (Auto) 0.1 % 07/18/23 12:21 Baso % (Auto) 0.2 % 07/18/23 12:21 Neut # (Auto) 11.77 10^3/uL (1.8-7.7) H 07/18/23 12:21 Lymph # (Auto) 0.7 10^3/uL (0.8-4.8) L 07/18/23 12:21 [place] # (Auto) 0.3 10^3/uL (0.2-0.9) 07/18/23 12:21 Eos # (Auto) 0.0 10^3/uL (0.0-0.8) 07/18/23 12:21 Baso # (Auto) 0.0 10^3/uL (0.0-0.1) 07/18/23 12:21 Nucleated RBC % (auto) 0 % 07/18/23 12:21 Nucleated RBCs # 0.0 /100WBC 07/18/23 12:21 Sodium 140 mmol/L (136-145) 07/18/23 12:21 Potassium 4.3 mmol/L (3.5-5.1) 07/18/23 12:21 Chloride 100 mmol/L (98-107) 07/18/23 12:21 Carbon Dioxide 28 mmol/L (22-29) 07/18/23 12:21 Anion Gap 16.3 (5-19) 07/18/23 12:21 BUN 8 mg/dL (6-20) 07/18/23 12:21 Creatinine 0.9 mg/dL (0.7-1.2) 07/18/23 12:21 GFR Calculation 103.7 mL/min (90-130) 07/18/23 12:21 Glucose 144 mg/dL (65-115) H 07/18/23 12:21 Calculated Osmolality 291 mOsm/kg (285-295) 07/18/23 12:21 Lactic Acid 2.1 mmol/L (0.5-2.2) 07/18/23 12:21 Calcium 10.4 mg/dL (8.5-10.5) 07/18/23 12:21 Total Bilirubin 1.0 mg/dL (0.15-1.2) 07/18/23 12:21 AST 15 U/L (0-40) 07/18/23 12:21 ALT 10 U/L (0-41) 07/18/23 12:21 Alkaline Phosphatase 34 U/L (40-130) L 07/18/23 12:21 Total Protein 8.2 g/dL (6.6-8.7) 07/18/23 12:21 Albumin 5.0 g/dL (3.5-5.2) 07/18/23 12:21 Globulin 3.2 g/dL (1.3-4.6) 07/18/23 12:21 Lipase 15 U/L (13-60) 07/18/23 12:21 All radiology interpretation(s) finalized by discharge Discharge Plan Discharge Patient Disposition: Home Clinical Impression: Cannabis hyperemesis syndrome concurrent with and due to cannabis abuse Condition: Stable Prescriptions: New Ativan 1 mg tablet 1 mg PO TID PRN (Reason: nausea and vomiting) Qty: 12 0RF olanzapine [Zyprexa Zydis] 5 mg tablet,disintegrating 5 mg PO BID Qty: 8 0RF No Action albuterol sulfate 90 mcg/actuation HFA aerosol inhaler 1 inh inhalation Q6H PRN (Reason: shortness of breath or wheezing) Qty: 6.7 0RF promethazine 25 mg tablet 20 mg PO Q6H PRN (Reason: nausea and vomiting) Qty: 20 0RF Discharge Orders: Discharge ED (Routine); Ordered 07/18/23 Ordered By: Mavis Cho Patient Instructions: Marijuana Abuse, Cannabis Use Disorder (ED), Cyclic Vomiting Syndrome (ED) Activity Restrictions/Additional Instructions: As we discussed your blood work here is unremarkable. Your CT scan is essentially unremarkable. As we discussed I suspect that your symptoms may be secondary to a hyperemesis cannabis syndrome. I would recommend complete cessation of marijuana however this is going to be a personal choice you need to make. I will prescribe you 2 different medications that hopefully will help with your symptoms at home over the next few days. You need to start with a bland liquid diet and advance as tolerated from there. You may return to the emergency department for worsening abdominal pain, fevers, intractable vomiting, generally feeling worse or unwell, or any other concerns you may have. Coding Level of Care Code ED Addictions Therapist for Jennifer Cantu
[2023-07-18] MEDS: ondansetron 2 mg/ML SDV 2 mL 4 MG IVP (13:16)
[2023-07-18 13:20] VITALS: RESP 20; O2SAT 98
[2023-07-18] MEDS: morphine 4 mg/mL SDV 1 mL IVP (13:20)
[2023-07-18 13:22] VITALS: BP 137/79; PULSE 50; RESP 18; O2SAT 97
[2023-07-18 13:25] VITALS: PULSE 50; TEMP 36.8; O2SAT 99
--- NOTE | 2023-07-18 13:27 | CT_ITS ---
WS: [id number] CT ABDOMEN AND PELVIS WITH CONTRAST HISTORY: abdominal pain, N/V TECHNIQUE: Imaging performed of the abdomen and pelvis with IV contrast. Single phase imaging of the abdomen. Coronal and sagittal reformats are submitted. All CT scans at [facility] use at [address] one of these dose optimization techniques: automated exposure control; mA and/or kV adjustment per patient size (includes targeted exams where dose is matched to clinical indication); or iterative re construction. IV CONTRAST: Omnipaque 350; 100 mL IV. Oral contrast: No DLP: 531.99 mGy.cm COMPARISON: 07/13/2023 Lower thorax: Lung bases are clear. Heart is normal size. Small hiatal hernia. Liver/biliary system: Normal size liver. Focal hepatic steatosis along the falciform ligament. Normal portal vein. Gallbladder: Normal. No gallstones or wall thickening. No pericholecystic fluid. Pancreas: Normal size pancreas and pancreatic duct. No adjacent inflammation. Spleen: Normal size spleen. No mass or infarct. Adrenal glands: Normal. Right kidney: Normal. Left kidney: Normal. Aorta: Normal. Lymphadenopathy: None. Free fluid: None. GI tract: Stomach is moderately distended with fluid. No small bowel obstruction. Sutures are noted i n the cecum. There is no mass or obstruction. Appendix is not identified. No pericolonic edema. No ob structive pattern. The appendix may've been previously removed. Abdominal wall: Unremarkable abdominal wall. No hernia. Pelvis: No free fluid. No adenopathy. Minimally distended urinary bladder. Bones: Unremarkable. CT/CT abdomen pelvis w con* [id number] IMPRESSION: 1. No acute abdominal or pelvic abnormalities are identified. 2. No ascites or free air. 3. Postsurgical changes at the cecum. The appendix is not definitely identifie d but there is no evidence for acute appendicitis. 4. Hepatic steatosis along the falciform ligament. 5. Moderate fluid distention of the stomach.
[2023-07-18 13:36] LABS: Lactic Sepsis W/Reflex 2.1 mmol/L (0.5-2.2)
[2023-07-18] MEDS: iohexol 350 mg/mL 500 mL Btl (per mL) IV (13:39)
[2023-07-18] MEDS: haloperidol inj 5 mg/mL INJ 1 mL 2.5 MG IVP (14:33)
[2023-07-18] MEDS: LORazepam 2 mg/mL INJ 10 mL MDV 1 MG IVP (14:35)
[2023-07-18 14:55] VITALS: BP 116/56; PULSE 64; O2SAT 94
[2023-07-18 15:10] LABS: Reflex Lactate Order REFLEX LACTIC ORDERD
[2023-07-18 15:19] VITALS: BP 116/54; PULSE 67; O2SAT 95
== END 2023-07-18 15:20 | disposition home or self-care (01) ==
PROVIDERS: Emergency Medicine; Emergency Provider Physician Assistant
DX: F12.10 Cannabis abuse, uncomplicated (principal); R11.2 Nausea with vomiting, unspecified; F17.290 Nicotine dependence, other tobacco product, uncomplicated
CPT/HCPCS: 74177; 80053; 83605; 83690; 85025; 96374; 96375; 99285; J1630; J2060; J2270; J2405; Q9967